=== PATIENT | male | born 1935 | race Caucasian/White ===

== ENCOUNTER 2020-03-18 10:45 | Observation (INO) | payer OTHER ==
[2020-03-18] VITALS (7 sets, daily range): BP systolic 130–150; BP diastolic 56–70
[~2020-03-18] VITALS: Ht 172.7 cm; Wt 83.0 kg
[~2020-03-18 10:45] MED LIST: ASPIR-LOW81 MG PO; CEFDINIR PO; DAILY VITAMIN1 EAC4 PO; FENOFIBRATE145 MG PO; FISH OIL 1,0001 EAC1 PO; GABAPENTIN300 MG PO; HYDRALAZINE HCL25 MG PO; LASIX40 MG PO; LEVOXYL50 MCG PO; MAGNESIUM OXID400 MG PO; NORVASC10 MG PO; PANTOPRAZOLE SO40 MG PO; PROTONIX IV40 MG PO; XARELTO15 MG PO
--- NOTE | 2020-03-18 11:15 | NUR ---
PT TO CT SCAN AT THIS TIME
[2020-03-18 11:19] LABS: BASOPHILS # (AUTO) 0.1 (0.0-0.1); BASOPHILS % 0.9 % (0.0-1.0); EOSINOPHILS # (AUTO) 0.2 (0.0-0.4); EOSINOPHILS % 2.5 % (0.0-6.0); HEMATOCRIT 43.2 % (38.2-49.6); HEMOGLOBIN 14.5 g/dL (14.0-18.0); LYMPHOCYTES # (AUTO) 1.7 (1.0-3.2); LYMPHOCYTES % 27.4 % (18.0-39.1); MEAN CORPUSCULAR HEMOGLOBIN 32.6 pg (28-32); MEAN CORPUSCULAR HGB CONC 33.6 g/dL (31-35); MEAN CORPUSCULAR VOLUME 97.1 fL (81-99); MONOCYTES # (AUTO) 0.6 (0.2-0.8); MONOCYTES % 9.5 % (4.4-11.3); NEUTROPHILS # (AUTO) 3.7 (2.1-6.9); NEUTROPHILS % 59.2 % (38.7-80.0); PLATELET COUNT 322 x10e3/uL (140-360); RED BLOOD COUNT 4.45 x10e6/uL (4.3-5.7); RED CELL DISTRIBUTION WIDTH 12.5 % (11.7-14.4)
--- NOTE | 2020-03-18 11:23 | NUR ---
NIHSS 1 DUE TO SENSORY DEFICIT, LKW 1900 03/18/[address] KOWALSKI
--- NOTE | 2020-03-18 11:32 | Emergency Department Note ---
History of Present Illnes History of Present Illness Chief Complaint: General Medicine Complaints History of Present Illness This is a 84 year old male arrived to the ED with complaints of a headache and bilateral upper and lower extremity numbness. Chief Complaint Comment PATIENT IN FROM HOME WITH COMPLAINTS OF A HEADACHE SINCE 0; ALSO WITH COMPLAINTS OF NUMBNESS TO HANDS AND FEET. PER SON, PATIENT WAS LAST SEEN NORMAL APPROX 7 PM 03/17/2020. PAIENT ALERT AND ORIENTED, RESP EVEN AND NONLABORED, APPEARS IN NO DISTRESS, UNABLE TO AMBULATE WITHOUT MAXIMUM ASSISTANCE, RATES PAIN 01/03 Historian: Patient, Family Member Arrival Mode: Car Onset (how long ago): day(s) Severity: moderate Onset quality: sudden Duration (how long): day(s) Timing of current episode: constant Progression: worsening Chronicity: new Past Medical/Family History Physician Review I have reviewed the patient's past medical and family history. Any updates have been documented here. Past Medical History Recent Fever: No Clinical Suspicion of Infectio: No New/Unexplained Change in Ment: No Past Medical History: Hypertension, Hypothyroidism, GERD, DVT/PE Other Medical History: Hypothyroidism DVT Other Surgery: IVC FILTER Social History Physically hurt or threatened: No Other Last Tetanus: OOD Any Pre-Existing Lines (PICC,: No Review of Systems Review of Systems Constitutional: Reports no symptoms EENTM: Reports no symptoms Cardiovascular: Reports no symptoms Respiratory: Reports no symptoms Gastrointestinal: Reports no symptoms Genitourinary: Reports no symptoms Musculoskeletal: Reports muscle stiffness Integumentary: Reports no symptoms Neurological: Reports as per HPI Psychological: Reports no symptoms Endocrine: Reports no symptoms Hematological/Lymphatic: Reports no symptoms Physical Exam Related Data Allergies: Coded Allergies: No Known Allergies (Unverified , 03/18/20) Triage Vital Signs Vital Signs Date Time Temp Pulse Resp B/P (MAP) Pulse Ox O2 Delivery O2 Flow Rate FiO2 03/18/20 10:52 97.7 75 20 155/80 99 Room Air Vital signs reviewed: Yes Physical Exam CONSTITUTIONAL Constitutional: Present well-developed, Present well-nourished HENT HENT: Present normocephalic, Present atraumatic, Present oropharynx clear/moist, Present nose normal HENT L/R: Present left ext ear normal, Present right ext ear normal EYES Eyes: Reports PERRL, Reports conjunctivae normal NECK Neck: Present ROM normal PULMONARY Pulmonary: Present effort normal, Present breath sounds normal CARDIOVASCULAR Cardiovascular: Present regular rhythm, Present heart sounds normal, Present capillary refill normal, Present normal rate GASTROINTESTINAL Abdominal: Present soft, Present nontender, Present bowel sounds normal GENITOURINARY Genitourinary: Present exam deferred SKIN Skin: Present warm, Present dry MUSCULOSKELETAL Musculoskeletal: Present ROM normal NEUROLOGICAL Neurological: Present alert, Present oriented x 3, Present sensory deficit, Present abnormal coordination, Present abnormal gait; Absent no gross motor or sensory deficits PSYCHOLOGICAL Psychological: Present mood/affect normal, Present judgement normal Results Laboratory Result Diagram: 03/18/20 1100 Laboratory Laboratory Tests Test 03/18/20 11:00 White Blood Count 6.32 x10e3/uL (4.8-10.8) Red Blood Count 4.45 x10e6/uL (4.3-5.7) Hemoglobin 14.5 g/dL (14.0-18.0) Hematocrit 43.2 % (38.2-49.6) Mean Corpuscular Volume 97.1 fL (81-99) Mean Corpuscular Hemoglobin 32.6 pg (28-32) Mean Corpuscular Hemoglobin Concent 33.6 g/dL (31-35) Red Cell Distribution Width 12.5 % (11.7-14.4) Platelet Count 322 x10e3/uL (140-360) Neutrophils (%) (Auto) 59.2 % (38.7-80.0) Lymphocytes (%) (Auto) 27.4 % (18.0-39.1) Monocytes (%) (Auto) 9.5 % (4.4-11.3) Eosinophils (%) (Auto) 2.5 % (0.0-6.0) Basophils (%) (Auto) 0.9 % (0.0-1.0) Neutrophils # (Auto) 3.7 (2.1-6.9) Lymphocytes # (Auto) 1.7 (1.0-3.2) Monocytes # (Auto) 0.6 (0.2-0.8) Eosinophils # (Auto) 0.2 (0.0-0.4) Basophils # (Auto) 0.1 (0.0-0.1) Absolute Immature Granulocyte (auto 0.03 x10e3/uL (0-0.1) Imaging Imaging results reviewed: Yes Impressions IMPRESSION: 1. No acute intracranial abnormalities. 2. Mild supratentorial chronic microvascular ischemic change. Mild generalized cerebral volume loss. Signed by: Dr. Preston Oconnor M.D. on 03/18/2020 11:50 AM Assessment & Plan Medical Decision Making COCO 84 F arrived to the ED with complaints of generalized weakness and inability ambulate for several days. Pt with marked ataxia- not a candidate for TPA given he is out of the window of onset of symptoms. Assessment & Plan Final Impression: (1) CVA (cerebral vascular accident) Depart Disposition: HOME, SELF-CARE Last Vital Signs Date Time Temp Pulse Resp B/P (MAP) Pulse Ox O2 Delivery O2 Flow Rate FiO2 03/18/20 11:15 97.8 86 18 124/88 99 Room Air Home Meds Reported Medications Multivitamin (DAILY VITAMIN FORMULA) 1 Each Tablet, 1 TAB PO DAILY 02/15/17 Magnesium Oxide (MAGNESIUM OXIDE) 400 Mg Tablet, 250 MG PO DAILY, TAB 02/15/17 Gabapentin (GABAPENTIN) 300 Mg Capsule, 300 MG PO BID, #60 CAP 02/15/17 Fenofibrate Nanocrystallized (FENOFIBRATE) 145 Mg Tablet, 134 MG PO DAILY 02/15/17 Furosemide (LASIX) 40 Mg Tablet, 40 MG PO DAILY, #30 TAB 05/06/14 Pantoprazole Sodium* (PROTONIX) 40 Mg Tablet.dr, 40 MG PO DAILY 05/06/14 Doole-3 Fatty Acids/Fish Oil (FISH OIL 1,000 MG SOFTGEL) 1 Each Capsule, 3000 MG PO DAILY 04/09/14 Aspirin (ASPIR-LOW) 81 Mg Tablet.dr, 81 MG PO DAILY 03/29/14 Hydralazine Hcl (HYDRALAZINE HCL) 25 Mg Tab, 25 MG PO BID 03/29/14 Levothyroxine Sodium (LEVOXYL) 50 Mcg Tablet, 50 MCG PO DAILY 03/29/14 MOY KOWALSKI DO Mar 18, 2020 11:31
[2020-03-18 11:38] LABS: ALBUMIN 4.3 g/dL (3.5-5.0); ALBUMIN/GLOBULIN RATIO 1.4 (0.8-2.0); ANION GAP 15.3 mmol/L (8-16); CALCIUM 9.2 mg/dL (8.4-10.2); CREATININE, SERUM 1.48 mg/dL (0.72-1.25); POTASSIUM 4.3 mmol/L (3.5-5.1)
[2020-03-18 11:44] LABS: CREATINE KINASE MB 2.7 ng/mL (0-5.0)
--- NOTE | 2020-03-18 11:53 | Diagnostic Imaging Report ---
CT BRAIN WO HISTORY: Numbness to hands, headache COMPARISON: Report from head CT dated 04/09/2014 Technique: Noncontrast axial scans were obtained from skull base to the vertex. Coronal and sagittal reconstructions obtained from the axial data. One or more of the following dose reduction techniques were used: Automated exposure control, adjustment of the mA and/or kV according to patient size, and/or utilization of iterative reconstruction technique. DISCUSSION: Scalp/Skull: Unremarkable. Brain sulci: Mildly prominent. Ventricles: Compensatory dilatation. Extra-axial spaces: No masses or fluid collections. Carotid siphon calcifications are present. Parenchyma: Mild bilateral deep white matter hypodensity is likely chronic microvascular ischemic change. Otherwise, no masses, hemorrhage, or large vascular territory acute infarct. Dural sinuses: No abnormal densities. Sellar/Suprasellar region: Intact. Skull base: Intact. Incidental findings: Mild scattered paranasal sinus mucosal thickening. IMPRESSION: 1. No acute intracranial abnormalities. 2. Mild supratentorial chronic microvascular ischemic change. Mild generalized cerebral volume loss. Signed by: Dr. Preston Oconnor M.D. on 03/18/2020 11:50 AM
[2020-03-18] MEDS ORDERED: SODIUM CHLORIDE 0.9% 50ML 0 ML ONE (12:07)
[2020-03-18] MEDS ORDERED: IOPAMIDOL 370 MG/ML 200 ML INFUS..BTL INJ ONE (12:07)
--- NOTE | 2020-03-18 12:19 | NUR ---
1st attempt to call report at this time
--- NOTE | 2020-03-18 12:24 | NUR ---
REPORT GIVEN TO TACO STOVALL, NOTIFIED THAT PT IS RECEIVING FLUIDS AT THIS TIME BEFORE GOING FOR A CTA OF THE BRAIN, MADE AWARE THAT RADIOLOGY NEEDS TO BE NOTIFIED WHEN PT IS READY FOR CTA,TACO STOVALL ACKNOWLEDGED
[2020-03-18] MEDS: SODIUM CHLORIDE 0.9% 1000ML 1,000 ML IV SCH ×2 (12:27→14:29)
--- NOTE | 2020-03-18 12:55 | NUR ---
PT ARRIVED FROM ER. PT IS AAOX4. EDUCATED PT ABOUT FALL PRECAUTIONS. PT VERBALIZED UNDERSTANDING. BED IS LOW AND LOCKED. SIDE RAILS X2. CALL LIGHT WITH IN EASY REACH. BED ALARM IS ON. ALL SAFETY MEASURES IN PLACE. PT DENIES NEEDS AT THIS TIME.
--- NOTE | 2020-03-18 13:00 | NUR ---
PT IS AAOX4. NO WEAKNESS, FACIAL DROOPING NOTED. CHECKED UPPER AND LOWER EXTREMITIES AND NORMAL STRENGTH NOTED.
--- NOTE | 2020-03-18 13:05 | NUR ---
PAGED RADIOLOGY NURSE REGARDING PENDING CTA BRAIN. INFORMED PT ARRIVAL TO THE UNIT.
--- NOTE | 2020-03-18 13:10 | NUR ---
NS RUNNING AT 100 ML/HR ON PT ARRIVAL FROM ER.
--- NOTE | 2020-03-18 13:45 | NUR ---
PT HOME MEDS RECONFIRMED WITH PT AND DAUGHTER TL OVER THE PHONE.
--- NOTE | 2020-03-18 14:00 | NUR ---
LOU GOTTI AND REPORTED PT ARRIVAL TO THE UNIT.
[2020-03-18] MEDS ORDERED: ACETAMINOPHEN 325 MG TAB PO PRN (14:30)
--- NOTE | 2020-03-18 14:30 | NUR ---
PAGED RADIOLOGY REGARDING CT.
--- NOTE | 2020-03-18 15:00 | NUR ---
PT OFF TO RADIOLOGY IN SAFE CONDITION.
--- NOTE | 2020-03-18 15:25 | NUR ---
SPOKE TO MRI NURSE REGARDING PT MRI ORDER.
--- NOTE | 2020-03-18 15:34 | NUR ---
PAGED DR. CHICAS REGARDING NEW CONSULT. WILL SEE PT TOMORROW PER THE
[2020-03-18] MEDS ORDERED: SODIUM CHLORIDE 0.9% 100 ML ONE (15:44)
--- NOTE | 2020-03-18 16:05 | NUR ---
PAGED RADIOLOGY. PT IS AT MRI PER THE RADIOLOGY.
[2020-03-18] MEDS ORDERED: GABAPENTIN 300 MG CAP PO SCH (17:00)
--- NOTE | 2020-03-18 17:14 | Diagnostic Imaging Report ---
History:Hand numbness Comparison studies:Same-day head CT. Technique: Axial images were obtained from the skull base to the vertex. Multiplanar and 3-D volume rendered images reformatted from the axial source data. Dose modulation, iterative reconstruction, and/or weight based adjustment of the mA/kV was utilized to reduce the radiation dose to as low as reasonably achievable. Intravenous contrast: 100 cc of Isovue-370. Findings: Anterior circulation: Internal carotid arteries: Patent bilaterally with mild calcified atherosclerosis in the bilateral cavernous and paraophthalmic segments without significant stenosis. Approximately 2 mm infundibular dilatation present at the left P-comm origin. Middle cerebral arteries: Patent, no proximal branch occlusion or stenosis. Anterior cerebral arteries: Patent, no proximal branch occlusion or stenosis. Posterior circulation: Vertebral arteries, patent, no abnormalities. The V4 segment of the left vertebral artery is hypoplastic and essentially terminates as PICA branch. Basilar artery: Patent, no abnormalities. Posterior cerebral arteries: Patent, no proximal branch occlusion or stenosis. Anatomical variants: Anterior communicating artery :Present Posterior communicating arteries: Not visualized. Vertebral arteries: Right is dominant. Nondominant left vertebral artery essentially terminates as a PICA branch. IMPRESSION: 1. No major intracranial arterial branch occlusion or stenosis. 2. Incidental 2 mm infundibular dilatation at the left P-comm origin. Signed by: Dr. Biju Guthrie M.D. on 03/18/2020 5:11 PM
--- NOTE | 2020-03-18 17:15 | NUR ---
PT BACK TO UNIT FROM RADIOLOGY. PT IS AAOX4. DENIES NEEDS AT THIS TIME.
[2020-03-18] MEDS: CEFTRIAXONE SOD 1 GM/NS 50 ML 50 ML IV SCH (17:30)
[2020-03-18] MEDS: HYDRALAZINE HCL 25 MG TAB PO SCH (17:34)
--- NOTE | 2020-03-18 17:48 | Diagnostic Imaging Report ---
History: Headache Comparison studies: Same-day head CT and intracranial CTA. Technique: Sagittal and axial T2, axial DWI, axial T2*GRE, axial T1 and axial coronal T2 FLAIR. Intravenous contrast: None Findings: Scalp: Incidental small lipoma in the right parietal scalp near the vertex. Bone marrow: Normal in signal intensity. Brain sulci: Mildly prominent. Ventricles: Mild compensatory dilatation. No hydrocephalus. Extra axial spaces: No mass, no fluid collection. Parenchyma: No mass, hemorrhage or acute ischemia. A few scattered and mildly confluent T2 FLAIR hyperintense foci in the supratentorial white matter are nonspecific but are most compatible with chronic microvascular ischemic changes. There is an incidental prominent arachnoid granulation in the right occipital calvarium with associated focal herniation of the underlying right posteromedial cerebellum with chronic encephalomalacia. Suprasellar region: No abnormalities. Craniocervical junction: Patent foramen magnum. No Chiari malformation. Vessels: Normal flow-voids in the arteries and sinuses. Incidental findings: Bilateral intraocular lens replacements. Mild nonspecific reactive T2 hyperintense inflammatory changes in the bilateral anterior ethmoids as well as mild mucosal thickening with small retention cysts in the bilateral maxillary sinuses. IMPRESSION: No acute intracranial abnormalities. No changes from the same day head CT. Chronic findings: 1. Mild generalized parenchymal volume loss. 2. Mild to moderate supratentorial microvascular ischemic changes. 3. Incidental prominent right occipital calvarial arachnoid granulation as described with underlying small chronic right cerebellar insult. Signed by: Dr. Biju Guthrie M.D. on 03/18/2020 5:45 PM
--- NOTE | 2020-03-18 18:26 | Diagnostic Imaging Report ---
History: Hand numbness, headache Comparison studies: None Technique: Sagittal T1, T2 and IR, axial T2 and axial gradient echo Intravenous contrast: None Findings: Alignment: Mild reversal the usual cervical lordotic curvature with retrolisthesis of C4 on C5 by approximately 4 mm, retrolisthesis of C5 on C6 by approximately 3 mm), severe degenerative canal stenosis due to disc ossify) retrolisthesis retrolisthesis of C6 on C7 by approximately 2 mm. Cervicomedullary junction: No abnormalities. Patent foramen magnum. Soft tissues: Small prevertebral effusion from C3 to C6. Spinal cord: Focal cord signal abnormality with myelomalacia at C4-C5 as well as possible cord signal changes at C5-C6 due to severe degenerative canal stenosis described below. Vertebrae: No acute compression fracture, infection or neoplasm. Chronic T3 superior endplate depression deformity with mild height loss. Edema within the C5-C6 and C6-C7 vertebral bodies and in the superior C7 endplate is without associated increased T2 signal within the disc to suggest discitis osteomyelitis and is most likely degenerative in etiology. Degenerative changes: C2-C3: Mildly degenerated disc. Mild left and severe right foraminal stenosis due to uncovertebral and facet arthrosis. The right facets are fused. C3-C4: Mildly degenerated disc. Symmetric disc bulge and thickened ligamentum flavum contribute to mild canal stenosis. Severe bilateral foraminal stenosis due to uncovertebral arthrosis and severe right and mild left foraminal stenosis. C4-C5: Moderately degenerated disc with moderate degenerative endplate edema. Retrolisthesis of C4 on C5 with associated disc osteophyte complex and thickened ligamentum flavum contribute to severe canal stenosis. Severe bilateral foraminal stenosis due to uncovertebral and facet arthrosis. C5-C6: Moderately degenerated disc with moderate degenerative endplate edema. Retrolisthesis of C5 on C6 with associated disc osteophyte complex and small central disc extrusion and thickened ligamentum flavum contribute to severe canal stenosis. Severe bilateral foraminal stenosis due to uncovertebral and facet arthrosis. C6-C7: Moderately degenerated disc with degenerative endplate edema. Disc osteophyte complex and thickened ligamentum flavum contribute to severe canal stenosis. Severe bilateral right foraminal stenosis due to uncovertebral and facet arthrosis. C7-T1: Mildly degenerated disc. Bilateral facet arthrosis. Patent canal and foramina. IMPRESSION: 1. 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 Associated cord signal changes with myelomalacia at C4-C5 as well as questionable cord signal changes at C5-C6 which could be correlated for acute on chronic myelopathy symptoms. 2. Small prevertebral effusion may be reactive related to degenerative changes or possibly related to recent trauma in the appropriate clinical setting. 3. Severe foraminal stenosis on the right at C2-C3 and bilaterally from C3 to C7. 4. Moderately degenerated discs with reactive endplate edema from C4 to C7. 5. Multilevel facet arthrosis. Findings discussed with Dr. Munoz at 6:25 pm 03/18/2020 Recommend spinal surgical consultation. Signed by: Dr. Biju Guthrie M.D. on 03/18/2020 6:29 PM
--- NOTE | 2020-03-18 18:54 | NUR ---
BEDSIDE SHIFT REPORT GIVEN TO THE [employer] RN. PT DENIED FURTHER NEEDS. PT DAUGHTER AT BEDSIDE WITH PERMISSION FROM [employer].
--- NOTE | 2020-03-18 20:08 | NUR ---
pt resting in bed comfortably daughter at bedside no signs of distress no complaints at this time
[2020-03-18] MEDS: BACLOFEN 10 MG TAB PO SCH (20:10)
[2020-03-18] MEDS: ACETAMIN/BUTALBITAL/CAFFEINE TAB PO PRN (22:44)
--- NOTE | 2020-03-19 00:21 | Consultation ---
DATE OF CONSULTATION: Neurology Consultation HISTORY OF PRESENT ILLNESS: I am seeing the patient for possible stroke versus TIA. The patient reports that this morning, he woke up with pain in the right side of his neck, posterior region, that he does not this is pretty bad pain compared to his normal pain. He describes it is not a stabbing pain, more of a deep ache positioning pain. It did not radiate to his head, which is pretty much stated in his neck and the base of the skull. No visual changes or speech dysfunction were noted. There is some report of right-sided weakness as per the family, but he himself denies it at this time. He states that his usual state of health is pretty good. He does take hypertensive medications and he is at home on aspirin and takes Tylenol for headaches when he gets them and he has thyroid disease. Denies alcohol or drugs. Symptoms have largely resolved. He still has mild pain. He has severe pain in the neck. Otherwise, he seems to be largely doing better. The weakness in his right arm is largely resolved. He denies any sensory disturbance, although there are some reports in the record regarding that. PHYSICAL EXAMINATION: VITAL SIGNS: Include temperature 97.7, respiratory rate of 20, pulse of 75 and regular, blood pressure 155/80. HEENT: His extraocular muscles are intact. Face is symmetric. Pupils are clear. He has diminished hearing and uses hearing aids, but there is no nuchal rigidity. I did not exert a lot of force on his neck because looking at the MRI before it is read that seems to be some high degree of stenosis in the C-spine. CARDIOVASCULAR: Regular rate and rhythm. PULMONARY: Clear to auscultation. ABDOMEN: Soft and nontender. LUNGS: There is no rhonchi in his breathing. No wheezing. He is breathing comfortably on room air. NEUROLOGIC: His strength in his overlock collar setter bilaterally is 5/5. Strength in his biceps laterally is 5/5. Reflexes are 1/4 in the uppers and 1-/4 in the bilateral lower extremities. Strength in the upper extremities and lower extremities seem to be 5/5. When he ambulates, his gait is a little bit either antalgic or wide-based. He does need some support to walk straight; however, he just gotten off MRI bed, so maybe some disuse or some imbalance due to that. ASSESSMENT AND PLAN: I am seeing Mr. Hesnon for possible transient ischemic attack. Initial CT scan is negative. I reviewed them while this was being performed and it appears to be within normal limits. A C-spine MRI, however, is quite abnormal, although it does not appear to be an acute abnormality. He is already on aspirin and statins. I am going to send lipid panel and CTA will be helpful if he does have any creatinine issue to make sure there is no dissection. Finally, I am going to adjust aspirin from 81 to 325. Given his creatinine function is borderline, I am going to avoid to see if hydration improves before we do a CT angiogram. An MRA will be ordered, however, of the head and the neck to evaluate for vascular dysfunction or even dissection of the posterior vertebral arteries. At this time, his exam is nonfocal, so I do not feel, he is not a tPA candidate here, and there is no need for anticoagulation. MD TEODORO RIOS/STACY /[id number]
[2020-03-19] MEDS: ACETAMIN/BUTALBITAL/CAFFEINE TAB PO PRN (02:45)
[2020-03-19 04:17] VITALS: BP 134/90
--- NOTE | 2020-03-19 04:19 | NUR ---
pt resting in bed comfortably family at bedside no signs of distress no complaints at this time
[2020-03-19 05:16] LABS: BASOPHILS % 0.6 % (0.0-1.0); EOSINOPHILS # (AUTO) 0.2 (0.0-0.4); EOSINOPHILS % 3.9 % (0.0-6.0); HEMATOCRIT 40.2 % (38.2-49.6); HEMOGLOBIN 13.3 g/dL (14.0-18.0); LYMPHOCYTES # (AUTO) 1.7 (1.0-3.2); LYMPHOCYTES % 33.5 % (18.0-39.1); MEAN CORPUSCULAR HEMOGLOBIN 32.4 pg (28-32); MEAN CORPUSCULAR HGB CONC 33.1 g/dL (31-35); MEAN CORPUSCULAR VOLUME 97.8 fL (81-99); MONOCYTES # (AUTO) 0.5 (0.2-0.8); NEUTROPHILS # (AUTO) 2.6 (2.1-6.9); NEUTROPHILS % 51.6 % (38.7-80.0); PLATELET COUNT 276 x10e3/uL (140-360); RED BLOOD COUNT 4.11 x10e6/uL (4.3-5.7); RED CELL DISTRIBUTION WIDTH 12.5 % (11.7-14.4)
[2020-03-19 05:36] LABS: ALBUMIN 3.7 g/dL (3.5-5.0); ALBUMIN/GLOBULIN RATIO 1.5 (0.8-2.0); ANION GAP 12.6 mmol/L (8-16); CALCIUM 8.1 mg/dL (8.4-10.2); CREATININE, SERUM 1.22 mg/dL (0.72-1.25); POTASSIUM 3.6 mmol/L (3.5-5.1)
[2020-03-19 05:53] LABS: CHOL/HDL RATIO 2.7 (3.9-4.7)
[2020-03-19] MEDS ORDERED: LEVOTHYROXINE SODIUM 50 MCG TAB PO SCH (06:00)
--- NOTE | 2020-03-19 07:00 | NUR ---
RECEIVED BEDSIDE REPORT FROM OFF GOING NIGHT NURSE. PATIENT ASLEEP WITH DAUGHTER AT BED SIDE. RESPIRATION EVEN AND NONLABORED. IV FLUIDS INFUSING, SITE ASYMPTOMATIC AND PATENT, TRANSPARENT DRESSING C/D/I. BED IN LOWEST POSITION AND LOCKED, SIDE RAILS X 2, NONSKID SOCKS APPLIED.
[2020-03-19 08:00] VITALS: BP 152/69
--- NOTE | 2020-03-19 08:23 | NUR ---
MAY REMOVE TELEMETRY FOR MRI.
--- NOTE | 2020-03-19 08:47 | NUR ---
PATIENT OFF THE UNIT @ 0833. WENT TO MRI. PATIENT LEFT THE UNIT IN STABLE CONDITION, NO S/S OF DISTRESS NOTED.
[2020-03-19] MEDS ORDERED: MULTIVITAMIN PO SCH (09:00)
[2020-03-19] MEDS ORDERED: MAGNESIUM OXIDE 400 MG TAB PO SCH (09:00)
[2020-03-19] MEDS ORDERED: FENOFIBRATE 145 MG TAB PO SCH (09:00)
[2020-03-19] MEDS ORDERED: PANTOPRAZOLE SOD 40 MG TABEC PO SCH (09:00)
[2020-03-19] MEDS ORDERED: FATTY ACIDS PO SCH (09:00)
[2020-03-19] MEDS ORDERED: [UNRECOGNIZED DRUG - OTHER] PO SCH (09:00)
[2020-03-19] MEDS ORDERED: ASPIRIN 81 MG CHEW TAB PO SCH ×2 (09:00)
[2020-03-19] MEDS ORDERED: FISH OIL PO SCH (09:00)
[2020-03-19] MEDS ORDERED: OMEGA PO SCH (09:00)
[2020-03-19] MEDS ORDERED: ASPIRIN 325 MG TAB PO SCH (09:00)
[2020-03-19] MEDS ORDERED: OMEGA 3 POLYUNSAT FATTY ACIDS 1000 MG SOFTGEL PO SCH (09:00)
[2020-03-19] MEDS ORDERED: MULTIVITAMINS/MINERALS TAB PO SCH (09:00)
[2020-03-19 09:25] VITALS: BP 152/69
[2020-03-19] MEDS: SENNOSIDES 8.6 MG TAB PO SCH ×2 (09:30→17:00)
[2020-03-19] MEDS: HYDRALAZINE HCL 25 MG TAB PO SCH ×2 (10:03→17:00)
[2020-03-19] MEDS: BACLOFEN 10 MG TAB PO SCH ×2 (10:04→15:05)
[2020-03-19] MEDS: GABAPENTIN 300 MG CAP PO SCH ×2 (10:06→15:05)
--- NOTE | 2020-03-19 10:11 | Diagnostic Imaging Report ---
Neck and intracranial MRAs without IV contrast History: Dissection Comparison studies: Intracranial MRA and brain MRI of 03/18/2020 Technique: Neck MRA: Axial 2-D [id number] with 3-D MIP reformats. Intracranial MRA: Axial 3-D [id number] with coronal, sagittal and 3-D MIP reformats. Intravenous contrast: None Findings: Neck MRA: If present, stenosis is calculated utilizing the NASCET method which calculates the degree of stenosis with reference to the normal lumen of the carotid artery distal to the stenosis. Carotid arteries: Evaluation of the carotid artery origins is limited by artifact otherwise patent, no flow limiting stenosis. Carotid bulbs: Patent, no (0%) stenosis by NASCET criteria. Internal carotid arteries: Patent, no flow limiting stenosis. Vertebral arteries: Evaluation of the origins are limited by motion/pulsation artifacts. Both vertebral arteries are otherwise patent. Mild luminal regularity in the right vertebral artery without hemodynamically significant stenosis may be due to atherosclerosis or possibly related to hypertrophic uncovertebral and facet degenerative arthrosis in the cervical spine as seen on the prior cervical spine MRI. Right vertebral artery is dominant. Intracranial MRA: Anterior circulation: Internal carotid arteries: Patent with mild atherosclerosis in the carotid siphons without significant stenosis. Incidental 2 mm infundibular dilatation at the left P-comm origin. Middle cerebral arteries: Patent, no proximal branch occlusion or stenosis. Anterior cerebral arteries: Patent, no proximal branch occlusion or stenosis. Posterior circulation: Vertebral arteries: Patent, no abnormalities. The C4 segment of the left vertebral artery is hypoplastic and essentially terminates as a PICA branch. Basilar artery: Patent, no abnormalities. Posterior cerebral arteries: Patent, no proximal branch occlusion or stenosis. Anatomical variants: Acom: Visualized. Pcoms: Visualized bilaterally. Vertebral arteries: Right is dominant. Nondominant left vertebral artery with hypoplastic intradural V4 segment which terminates as a PICA branch. IMPRESSION: Neck MRA: 1. Evaluation of the common carotid artery and vertebral artery origins are limited due to artifacts. 2. Bilateral carotid and vertebral arteries beyond their origins are otherwise patent without flow-limiting stenosis. Intracranial MRA: 1. No major arterial branch occlusion or stenosis. 2. Incidental 2 mm infundibular dilatation the left P-comm origin. 3. No changes from the intracranial CTA of 03/18/2020. Signed by: Dr. Biju Guthrie M.D. on 03/19/2020 10:08 AM
[2020-03-19] MEDS ORDERED: PREDNISONE 20 MG TAB PO ONE (10:15)
--- NOTE | 2020-03-19 10:20 | NUR ---
PATIENT ARRIVED TO THE UNIT @1020. PATIENT IN STABLE CONDITION,NO S/S OF DISTRESS NOTED.
[2020-03-19 11:27] VITALS: BP 138/68
--- NOTE | 2020-03-19 11:59 | NUR ---
Discontinuing PT services since patient is Mod I in functional mobility.Thank you Addendum: 03/19/20 at 1159 by Juan ly PT Amended: Links added.
--- NOTE | 2020-03-19 13:03 | History and Physical ---
PRIMARY CARE PHYSICIAN: Dr. Nasim Garcia [employer] SUPERVISOR: Dr. Celia Alvarenga CHIEF COMPLAINT: Neck pain. HISTORY OF PRESENT ILLNESS: The patient is 84 years male, came in complaining of some weakness, bilateral upper extremity associated with numbness and tingling sensation. The patient had a CTA of the brain unremarkable, no acute finding. CT of the brain also negative. The patient had MRI of the neck and MRI of the brain that was done. Findings consistent with severe degenerative disk disease of the C-spine. For more specific, please review the imaging test. The patient is otherwise stable at this time. He had no chest pain or shortness of breath. No focal deficit. PAST MEDICAL HISTORY: Includin. Hypertension. 2. Hypothyroidism. 3. Reflux. 4. History of deep vein thrombosis. 5. Pulmonary embolism. 6. Anticoagulant therapy. 7. Has IVC filter placement. 8. Osteoarthritis. SOCIAL HISTORY: The patient does not smoke or use alcohol. No regular drug. ALLERGIES: NO KNOWN ALLERGIES. HOME MEDICATIONS: List is reviewed. 1. He is on aspirin. 2. Fenofibrate. 3. Furosemide. 4. Gabapentin. 5. Hydralazine. 6. Levothyroxine. 7. Magnesium oxide. 8. Multivitamin. 9. [place]-3 fatty acids. 10. . PHYSICAL EXAMINATION: VITAL SIGNS: Temperature is 98, blood pressure 134/90, pulse rate is 75 respirations 18. GENERAL: The patient is not in acute distress. He is awake. HEENT: Normocephalic and atraumatic. Anicteric. NECK: Supple grossly. PULMONARY: Diminished breath sounds. CARDIOVASCULAR: Regular rate and rhythm. ABDOMEN: Soft and unremarkable. EXTREMITIES: No gross cyanosis or edema. NEUROLOGIC: Radiating pain both upper and lower extremity with some numbness and tingling sensation. IMAGING TESTS: Head CTA, otherwise unremarkable. Cervical spine MRI showed that the patient has severe degenerative canal stenosis from C4-C7. There is disk osteophyte complexes and retrolisthesis. 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 There is moderately degenerated disks with reactive endplate edema from C4-C7. Multilevel facet arthrosis. MRI of the brain otherwise unremarkable. No acute finding. IMPRESSION: Degenerative disk disease with C-spinal radiating pain to the both upper extremity with severe foraminal stenosis of C2-C3 and bilaterally from C3-C7. Moderately degenerated disks with reactive endplate edema from C4-C7. No history of trauma. There is severe degenerative canal stenosis from C4-C7 due to disk osteophyte complexes and retrolisthesis. This is describing the patient's premises of worsening symptom of the C-spine problem. PLAN: I discussed with patient and daughter in the room. They do not want neurosurgical consultation at this time. They want to try some medication and physical therapy first. If any surgical consultation, they will get Dr. Garcia to refer as an outpatient. We will start the patient on gabapentin, some steroids and pain medication. We will follow up on the patient. If you do better, he either go home today or tomorrow. MD KENNETH Swift/STACY /[id number]
--- NOTE | 2020-03-19 14:02 | NUR ---
THE PATIENT PULLED OUT HIS IV ACCESS AND REMOVED HIS TELEMETRY AND REFUSED TO HAVE ANOTHER IV PACED AND TO HAV THE TELEMETRY APPLIED.
[2020-03-19] MEDS: HYDROCODONE/APAP 5MG-325MG TAB PO PRN ×2 (14:29→18:29)
[2020-03-19 15:30] VITALS: BP 141/59
[2020-03-19] MEDS: CEFTRIAXONE SOD 1 GM/NS 50 ML 50 ML IV SCH (16:30)
--- NOTE | 2020-03-19 17:11 | NUR ---
patient awake and enjoying dinner vs 97.5 152 /69 99 awake rrr cta abd soft oriented x 2 calm speech clear no focal neurological deficits no numbness no weakness, pronator drift (left) resolved no ataxia stregnth 5/5 in bue 4/5 ble a/p high grade c spine stenosis anterior vertebral body edema with structural changes - posisbly post traumatic vs infalmatory foraminal stenosis no evidence of acute neurological injury I showed the patietns daughter his MRI and epxlained the need for evaluation for surgery, given the severity of stnosis an drisk of spinal cord damage with relatively minor injury. she expressed understanding and prefers no acute surgical intervention but wanted to follow up as outpt I explained she could follow w/ Dr. Paul, my partner,but would also require neurosugcal or orthopaedic eval for C spine stensis and anterior disk abnormality. clinically he is stable and well, and wishes to go home. no acute reason to maintain him here. however he lives alone and is a fall risk, i aexplained even a minor jostle could be dangerous to his functional status including leading to paralysis diamante epressed understanding
[2020-03-20] MEDS ORDERED: PREDNISONE 20 MG TAB PO SCH (09:00)
[2020-03-20] MEDS ORDERED: FUROSEMIDE 40 MG TAB PO SCH (09:00)
--- OUTSIDE RECORDS SUMMARY | 2020-03-23 15:15 | XMS REPORT | Continuity of Care Document ---
Author Author [facility] t Organization [facility] Address [address] [place] [address] Phone Unavailable Care Team Providers Care Digital Librarian Name Role Phone MD ADRYAN KERR PCP NEY GOTTI Attphychase Unavailable NEY GOTTI Admphychase Unavailable Payers Payer Name Policy Type Policy Number Effective Date Expiration Date Chase Porter [id number] 2019 00:00:00 [facility] Problems Condition Name Condition Details Condition Category Status Onset Date Resolution Date Last Treatment Date Treating Clinician Comments Source Deep vein thrombosis Problem Active 2014-05-21 00:00:00 [facility] Hypokalemia Problem Active 2014-05-21 00:00:00 [facility] 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 Social History Social Habit Start Date Stop Date Quantity Comments Source Sex Assigned At 1935 00:00:00 1935 00:00:00 Male [facility] Medications Ordered Medication Name Filled Medication Name Start Date Stop Da te Current Medication? Ordering Clinician Indication Dosage Frequency Signature (SIG) Comments Components Source Aspirin (Aspir-Low) 81 Mg TABLET. Aspirin (Aspir-Low) 81 Mg TABLET. Yes 81 Daily [facility] Fenofibrate Nanocrystallized (Fenofibrate) 145 Mg TABL ET Fenofibrate Nanocrystallized (Fenofibrate) 145 Mg TABLET Yes 134 Daily [facility] Furosemide (Lasix) 40 Mg TABLET Furosemide (Lasix) 40 Mg TABLET Yes 40 Daily [facility] Gabapentin Gabapentin Yes 300 Twice A Day [facility] Hydralazine Hcl Hydralazine Hcl Yes 25 Twice A Day [facility] Levothyroxine Sodium (Levoxyl) 50 Mcg TABLET Levothyro xine Sodium (Levoxyl) 50 Mcg TABLET Yes 50 Daily [facility] Magnesium Oxide Magnesium Oxide Yes 250 Daily [facility] Multivitamin (Daily Vitamin Formula) 1 Each TABLET Mul tivitamin (Daily Vitamin Formula) 1 Each TABLET Yes 1 Daily [facility] [place]-3 Fatty Acids/Fish Oil (Fish Oil 1,000 Mg Softge l) 1 Each CAPSULE [place]-3 Fatty Acids/Fish Oil (Fish Oil 1,000 Mg Softgel) 1 Each CAPSULE Yes 3000 Daily [facility] Pantoprazole Sodium (Protonix) 40 Mg TABLET. Pantopr azole Sodium (Protonix) 40 Mg TABLET. Yes 40 Daily [facility] Amlodipine Besylate (Norvasc) 10 Mg TAB Amlodipine Besylate (Norvasc) 10 Mg TAB 2017-02-15 00:00:00 No 10 Twice A Day [facility] Cefdinir Cefdinir 2017-02-15 00:00:00 No 300 Every 1 2 Hours [facility] Rivaroxaban (Xarelto) 15 Mg TABLET Rivaroxaban (Xarelto) 15 Mg T ABLET 2017-02-15 00:00:00 No Twice A Day [facility] Pantoprazole Sodium (Protonix Iv) 40 Mg VIAL Pantopraz ole Sodium (Protonix Iv) 40 Mg VIAL 2014-05-06 00:00:00 No 40 Q24h [facility] Vital Signs Vital Name Observation Time Observation Value Comments Source Body Temperature 2020-03-19 15:30:00 97.3 [degF] [facility] BMI (Body Mass Index) 2020-03-18 13:15:00 27.8 kg/m2 [facility] Weight 2020-03-18 10:52:00 183 [lb_av] [facility] Procedures Procedure Date / Time Performed Performing Clinician Manda zuniga Magnetic resonance angiography of head without contrast 00:00:00 [facility] Magnetic resonance angiography of neck without contrast 00:00:00 [facility] Computed tomography of brain without radiopaque contrast 2020-02 00:00:00 [facility] Magnetic resonance imaging of brain without contrast 2020-03-18 00:00:00 [facility] Magnetic resonance imaging of cervical spine without c ontrast 2020-03-18 00:00:00 [facility] Computed tomography angiography of brain 2020-03-18 00:00:00 [facility] Plan of Care Planned Activity Planned Date Details Comments Source Instructions Infection Control [facility] Encounters Start Date/Time End Date/Time Encounter Type Admission Type [facility] Care Department Encounter ID Source 2020-03-18 11:53:00 2020-03-19 19:00:00 Discharged Inpatient (obs) 1 NEY GOTTI [facility] [id number] [facility] Results Test Description Test Time Test Comments Results Result Comments Source MRA NECK WO 2020-03-19 09:52:00 [facility] [address] [address] Patient Name: VALENTINO PEDROZA MR #: [id number] : 1935 Age/Sex: 84/M Req #: [id number] Adm Physician: NEY GOTTI MD Ordered by: SINCERE CHICAS MD Report #: [id number] Location: MED/SURG2 Room/Bed: [facility] Procedure: [id number] MRI/MRA NECK WO Exam Date: Exam Time: REPORT STATUS: Signed Neck and intracranial MRAs without IV contrast History: Dissection Comparison studies: Intracranial MRA and brain MRI of 03/18/2020 Technique: Neck MRA: Axial 2-D [id number] with 3-D MIP reformats. Intracranial MRA: Axial 3-D [id number]-qt-[id number] with coronal, sagittal and 3-D MIP reformats. Intravenous contrast: None Findings: Neck MRA: If present, stenosis is calculated utilizing the NASCET method which calculates the degree of stenosis with reference to the normal lumen of the carotid artery distal to the stenosis. Carotid arteries: Evaluation of the carotid artery origins is limited by artifact otherwise patent, no flow limiting stenosis. Carotid bulbs: Patent, no (0%) stenosis by NASCET criteria. Internal carotid arteries: Patent, no flow limiting stenosis. Vertebral arteries: Evaluation of the origins are limited by motion/pulsation artifacts. Both vertebral arteries are otherwise patent. Mild luminal regularity in the right vertebral artery without hemodynamically significant stenosis may be due to atherosclerosis or possibly related to hypertrophic uncovertebral and facet degenerative arthrosis in the cervical spine as seen on the prior cervical spine MRI. Right vertebral artery is dominant. Intrac ranial MRA: Anterior circulation: Internal carotid arteries: Patent with mild atherosclerosis in the carotid siphons without significant stenosis. Incidental 2 mm infundibular dilatation at the left P-comm origin. Middle cerebral arteries: Patent, no proximal branch occlusion or stenosis. Anterior cerebral arteries: Patent, no proximal branch occlusion or stenosis. Posterior circulation: Vertebral arteries: Patent, no abnormalities. The C4 segment of the left vertebral artery is hypoplastic and essentially terminates as a PICA branch. Basilar artery: Patent, no abnormalities. Posterior cerebral arteries: Patent, no proximal branch occlusion or stenosis. Anatomical variants: Acom: Visualized. Pcoms: Visualized bilaterally. Vertebral arteries: Right is dominant. Nondominant left vertebral artery with hypoplastic intradural V4 segment which terminates as a PICA branch. IMPRESSION: Neck MRA: 1. Evaluation of the common car otid artery and vertebral artery origins are limited due to artifacts. 2. Bilateral carotid and vertebral arteries beyond their origins are otherwise patent without flow-limiting stenosis. Intracranial MRA: 1. No major arterial branch occlusion or stenosis. 2. Incidental 2 mm infundibular dilatation the left P-comm origin. 3. No changes from the intracranial CTA of 03/18/2020. Signed by: Dr. Manisha Guthrie M.D. on 03/19/2020 10:08 AM Dictated By: MANISHA GUTHRIE MD 1008 Transcribed By: ANGY on 03/19/20 1008 COPY TO: SINCERE CHICAS MD Blood leukocytes automated count (number/volume) 2020-03-19 04:47:00 Test Item White Blood Count (test code = 6690-2) 5.08 4.8-10.8 [facility] count (number/volume)2020-03-19 04:47:00* Test Item Value Reference Range Interpretation Comments Red Blood Count (test code = 789-8) 4.11 4.3-5.7 [facility] hemoglobin measurement (moles/volume)2020-03-19 04:47:00* Test Item Value Reference Range Interpretation Comments Hemoglobin (test code = 98174-3) 13.3 14.0-18.0 [facility] HospitalAutomated blood hematocrit (volume fraction)2020-03-19 04:47:00* Test Item Value Reference Range Interpretation Comments Hematocrit (test code = 4544-3) 40.2 38.2-49.6 [facility] HospitalAutomated erythrocyte mean corpuscular [id number] 04:47:00* Test Item Value Reference Range Interpretation Comments Mean Corpuscular Volume (test code = 787-2) 97.8 81-99 [facility] HospitalAutomated erythrocyte mean corpuscular hemoglobin (mass per erythrocyte)2020-03-19 04:47:00* Test Item Value Reference Range Interpretation Comments Mean Corpuscular Hemoglobin (test code = 785-6) 32.4 28-32 [facility] HospitalAutom[facility] erythrocyte mean corpuscular hemoglobin concentration measurement (mass/volume)2020-03-19 04:47:00* Test Item Value Reference Range Interpretation Comments Mean Corpuscular Hemoglobin Concent (test code = 786-4) 33.1 31-35 [facility] HospitalRDW [id number] 04:47:00* Test Item Value Reference Range Interpretation Comments Red Cell Distribution Width (test code = 16709-5) 12.5 11.7 -14.4 [facility] HospitalAutomated blood platelet count (count/volume)2020-03-19 04:47:00* Test Item Value Reference Range Interpretation Comments Platelet Count (test code = 777-3) 276 140-360 [facility] HospitalAutom[facility] blood segmented neutrophil count as percentage of total [id number] 04:47:00* Test Item Value Reference Range Interpretation Comments Neutrophils (%) (Auto) (test code = 49555-8) 51.6 38.7-80.0 [facility] HospitalAutomat blood lymphocyte count as percentage ot total [id number] 04:47:00* Test Item Value Reference Range Interpretation Comments Lymphocytes (%) (Auto) (test code = 736-9) 33.5 18.0-39.1 [facility] HospitalAutomated blood monocyte count as percentage of total [id number] 04:47:00* Test Item Value Reference Range Interpretation Comments Monocytes (%) (Auto) (test code = 5905-5) 10.0 4.4-11.3 [facility] HospitalAutomated blood eosinophil count as percentage of total vlhperkbxc8923-52-43 04:47:00* Test Item Value Reference Range Interpretation Comments Eosinophils (%) (Auto) (test code = 713-8) 3.9 0.0-6.0 [facility] HospitalAutomated blood basophil count as percentage of total slftcaqrsf9502-21-05 04:47:00* Test Item Value Reference Range Interpretation Comments Basophils (%) (Auto) (test code = 706-2) 0.6 0.0-1.0 [facility] HospitalFluoroscopic procedure less than one hour [id number] 04:47:00* Test Item Value Reference Range Interpretation Comments IM GRANULOCYTES % (test code = IM GRANULOCYTES %) 0.4 0.0- 1.0 [facility] HospitalAutom[facility] blood neutrophil count 2020-03-19 04:47:00* Test Item Value Reference Range Interpretation Comments Neutrophils # (Auto) (test code = 751-8) 2.6 2.1-6.9 [facility]Blood lymphocytes count (number/volume) 2020-03-19 04:47:00* Test Item Value Reference Range Interpretation Comments Lymphocytes # (Auto) (test code = 22317-0) 1.7 1.0-3.2 [facility] HospitalBlood monocytes automated count (number/volume)2020-03-19 04:47:00* Test Item Value Reference Range Interpretation Comments Monocytes # (Auto) (test code = 742-7) 0.5 0.2-0.8 [facility] HospitalAutomated blood eosinophil count 2020-03-19 04:47:00* Test Item Value Reference Range Interpretation Comments Eosinophils # (Auto) (test code = 711-2) 0.2 0.0-0.4 [facility] HospitalAutomated blood basophil count (count/volume)2020-03-19 04:47:00* Test Item Value Reference Range Interpretation Comments Basophils # (Auto) (test code = 704-7) 0.0 0.0-0.1 [facility] HospitalFluoroscopic procedure less than one hour [id number] 04:47:00* Test Item Value Reference Range Interpretation Comments Absolute Immature Granulocyte (auto (emily t code = Absolute Immature Granulocyte (auto) 0.02 0-0.1 [facility] HospitalErythrocyte sedimentation rate by Westergren [id number] 04:47:00* Test Item Value Reference Range Interpretation Comments Erythrocyte Sedimentation Rate (test code = 4537-7) 5 0- 13 [facility] sodium measurement (moles/volume)2020-03-19 04:47:00* Test Item Value Reference Range Interpretation Comments Sodium Level (test code = 2951-2) 141 136-145 [facility] potassium measurement (moles/volume)2020-03-19 04:47:00* Test Item Value Reference Range Interpretation Comments Potassium Level (test code = 2823-3) 3.6 3.5-5.1 [facility] chloride measurement (moles/volume)2020-03-19 04:47:00* Test Item Value Reference Range Interpretation Comments Chloride Level (test code = 2075-0) 106 98-107 [facility] plasma carbon dioxide, total measurement (moles/volume)2020-03-19 04:47:00* Test Item Value Reference Range Interpretation Comments Carbon Dioxide Level (test code = 2028-9) 26 22-29 [facility] plasma anion [id number] 04:47:00* Test Item Value Reference Range Interpretation Comments Anion Gap (test code = 43354-6) 12.6 8-16 [facility] urea nitrogen measurement (mass/volume)2020-03-19 04:47:00* Test Item Value Reference Range Interpretation Comments Blood Urea Nitrogen (test code = 3094-0) 14 7-26 [facility] creatinine measurement (mass/volume)2020-03-19 04:47:00* Test Item Value Reference Range Interpretation Comments Creatinine (test code = 2160-0) 1.22 0.72-1.25 [facility] urea nitrogen/creatinine mass qzbie0885-22-84 04:47:00* Test Item Value Reference Range Interpretation Comments BUN/Creatinine Ratio (test code = 3097-3) 11 6-25 [facility] HospitalEstimated glomerular filtration rate (GFR) sdhaxbxywwmwo4638-37-99 04:47:00* Test Item Value Reference Range Interpretation Comments Estimat Glomerular Filtration Rate (test code = 568879632) 57 >60 Ranges were taken from the National Kidney Disease Education Program and the [facility] Kid[facility] Foundation literature.Reference ranges:60 or greater: Xzhctn57-66 ( for 3 consecutive months): Chronic kidney disease 15 or less: Kidney failureMemorial Hermann Sugar Land HospitalGlucose wdioznammbx2044-23-17 04:47:00* Test Item Value Reference Range Interpretation Comments Glucose Level (test code = ZPZ9600) 91 74-118 [facility] or plasma calcium measurement (mass/volume)2020-03-19 04:47:00* Test Item Value Reference Range Interpretation Comments Calcium Level (test code = 72368-8) 8.1 8.4-10.2 [facility] plasma total bilirubin measurement (mass/volume)2020-03-19 04:47:00* Test Item Value Reference Range Interpretation Comments Total Bilirubin (test code = 1975-2) 0.6 0.2-1.2 [facility] HospitalFluoroscopic procedure less than one hour [id number] 04:47:00* Test Item Value Reference Range Interpretation Comments Aspartate Amino Transf (AST/SGOT) (test code = Aspartate Amino Transf (AST/SGOT)) 19 5-34 [facility] or plasma alanine aminotransferase measurement (enzymatic activity/volume)2020-03-19 04:47:00* Test Item Value Reference Range Interpretation Comments Alanine Aminotransferase (ALT/SGPT) (test code = 1742-6) 11 0-55 [facility] or plasma protein measurement (mass/volume)2020-03-19 04:47:00* Test Item Value Reference Range Interpretation Comments Total Protein (test code = 2885-2) 6.1 6.5-8.1 [facility] albumin measurement (mass/volume)2020-03-19 04:47:00* Test Item Value Reference Range Interpretation Comments Albumin (test code = 1751-7) 3.7 3.5-5.0 [facility] HospitalPlasma globulin measurement (mass/volume) 2020-03-19 04:47:00* Test Item Value Reference Range Interpretation Comments Globulin (test code = 41265-4) 2.4 2.3-3.5 [facility] albumin/globulin mass [id number] 04:47:00* Test Item Value Reference Range Interpretation Comments Albumin/Globulin Ratio (test code = 1759-0) 1.5 0.8-2.0 [facility] alkaline phosphatase measurement (enzymatic activity/volume)2020-03-19 04:47:00* Test Item Value Reference Range Interpretation Comments Alkaline Phosphatase (test code = 6768-6) 33 40-150 [facility] or plasma triglyceride measurement (mass/volume)2020-03-19 04:47:00* Test Item Value Reference Range Interpretation Comments Triglycerides Level (test code = 2571-8) 117 0-149 [facility] or plasma cholesterol measurement (mass/volume)2020-03-19 04:47:00* Test Item Value Reference Range Interpretation Comments Cholesterol Level (test code = 2093-3) 134 0-199 Less than 200 mg/dL Low Ojqf538 - 239 mg/dL Borderline Essm962 m g/dl and greater High Risk [facility] plasma cholesterol in LDL measurement (mass/volume) 2020-03-19 04:47:00* Test Item Value Reference Range Interpretation Comments LDL Cholesterol (test code = 2089-1) 62 60-130 [facility] or plasma cholesterol in HDL measurement (mass/volume)2020-03-19 04:47:00* Test Item Value Reference Range Interpretation Comments HDL Cholesterol (test code = 2085-9) 49 40-60 [facility] or plasma total cholesterol/cholesterol in HDL mass oxcfm1562-12-80 04:47:00* Test Item Value Reference Range Interpretation Comments Cholesterol/HDL Ratio (test code = 9830-1) 2.7 3.9-4.7 [facility] HospitalMRI SPINE CERVICAL [id number] 18:03:00 [facility] [address] [place] [address] Patient Name: VALENTINO PEDROZA MR #: [id number] : 1935 Age/Sex: 84/M Req #: [id number] Adm Physician: NEY GOTTI MD Ordered by: NEY GOTTI MD Report #: [id number] Location: MED/SURG2 Room/Bed: [facility] Procedure: [id number] MRI/MRI SPINE JAS ZURITA Exam Date: Exam Time: REPORT STATUS: Signed History: Hand numbness, heada mauro Comparison studies: None Technique: Sagittal T1, T2 and IR, axial T2 and axial gradient echo Intravenous contrast: None Findings: Al ignment: Mild reversal the usual cervical lordotic curvature with retrolisthes is of C4 on C5 by approximately 4 mm, retrolisthesis of C5 on C6 by approximat óscar 3 mm), severe degenerative canal stenosis due to disc ossify) retrolisthes is retrolisthesis of C6 on C7 by approximately 2 mm. Cervicomedullary ju nction: No abnormalities. Patent foramen magnum. Soft tissues: Small preverte bral effusion from C3 to C6. Spinal cord: Focal cord signal abnormality with m yelomalacia at C4-C5 as well as possible cord signal changes at C5-C6 due to s evere degenerative canal stenosis described below. Vertebrae: No acut e compression fracture, infection or neoplasm. Chronic T3 superior endplate de pression deformity with mild height loss. Edema within the C5-C6 and C6-C7 vertebral bodies and in the superior C7 endplate is without associated increas ed T2 signal within the disc to suggest discitis osteomyelitis and is most lik óscar degenerative in etiology. Degenerative changes: C2-C3: Mildly de generated disc. Mild left and severe right foraminal stenosis due to uncoverte bral and facet arthrosis. The right facets are fused. C3-C4: Mildly degen erated disc. Symmetric disc bulge and thickened ligamentum flavum contribute t o mild canal stenosis. Severe bilateral foraminal stenosis due to uncovertebra l arthrosis and severe right and mild left foraminal stenosis. C4-C5: Mod erately degenerated disc with moderate degenerative endplate edema. Retrolisth esis of C4 on C5 with associated disc osteophyte complex and thickened ligamen brunilda flavum contribute to severe canal stenosis. Severe bilateral foraminal juan nosis due to uncovertebral and facet arthrosis. C5-C6: Moderately degener ated disc with moderate degenerative endplate edema. Retrolisthesis of C5 on C 6 with associated disc osteophyte complex and small central disc extrusion and thickened ligamentum flavum contribute to severe canal stenosis. Severe bilat eral foraminal stenosis due to uncovertebral and facet arthrosis. C6-C7: Moderately degenerated disc with degenerative endplate edema. Disc osteophyte complex and thickened ligamentum flavum contribute to severe canal stenosis. Severe bilateral right foraminal stenosis due to uncovertebral and facet arth rosis. C7-T1: Mildly degenerated disc. Bilateral facet arthrosis. Patent canal and foramina. IMPRESSION: 1. 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 2. Small prevertebral effusion may be reactive related to degene rative changes or possibly related to recent trauma in the appropriate clinica l setting. 3. Severe foraminal stenosis on the right at C2-C3 and bilaterally from C3 to C7. 4. Moderately degenerated discs with reactive endplate dorothy a from C4 to C7. 5. Multilevel facet arthrosis. Findings discussed with Dr. Gotti at 6:25 pm 03/18/2020 Recommend spinal surgical consultation. Signed by: Dr. Manisha Guthrie M.D. on 03/18/2020 6:29 PM Dictated By : MANISHA GUTHRIE MD 1 829 Transcribed By: ANGY on 03/18/20 5664 COPY TO: NEY GOTTI MD MRI BRAIN [id number] 17:33:[address] [address] Patient Name: VALENTINO PEDROZA MR #: [id number] : 1935 Age/Sex: 84/M Req #: [id number] Adm Physician: NEY GOTTI MD Ordered by: NEY GOTTI MD Report #: [id number] Location: MED/SURG2 Room/Bed: [facility] Procedure: [id number] MRI/MRI BRAIN WO Exam Date: Exam Time: REPORT STATUS: Signed History: Headache Comparison studies : Same-day head CT and intracranial CTA. Technique: Sagittal and axial T 2, axial DWI, axial T2*GRE, axial T1 and axial coronal T2 FLAIR. Intravenous contrast: None Findings: Scalp: Incidental small lipoma in the right parietal scalp near the vertex. Bone marrow: Normal in signal intensity. Brain sulci: Mildly prominent. Ventricles: Mild compensatory dilatation. No hy drocephalus. Extra axial spaces: No mass, no fluid collection. Parenchyma : No mass, hemorrhage or acute ischemia. A few scattered and mildly confluent T2 FLAIR hyperintense foci in the supratentorial white matter are nonspecific but are most compatible with chronic microvascular ischemic changes. Ther e is an incidental prominent arachnoid granulation in the right occipital karine varium with associated focal herniation of the underlying right posteromedial cerebellum with chronic encephalomalacia. Suprasellar region: No abnormalit ies. Craniocervical junction: Patent foramen magnum. No Chiari malformation. Vessels: Normal flow-voids in the arteries and sinuses. Incidental findin gs: Bilateral intraocular lens replacements. Mild nonspecific reactive T2 hy perintense inflammatory changes in the bilateral anterior ethmoids as well as mild mucosal thickening with small retention cysts in the bilateral maxillary sinuses. IMPRESSION: No acute intracranial abnormalities. No change s from the same day head CT. Chronic findings: 1. Mild generalized paren chymal volume loss. 2. Mild to moderate supratentorial microvascular ischemic changes. 3. 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 Signed by: Dr. Manisha Guthrie M.D. on 03/18/2020 5:45 PM Dictated By: SIENA GUTHRIE MD [address] Gonzalo ranscribed By: ANGY on 03/18/201744 COPY TO: NEY GOTTI MD CTA [id number] 16:55:00 [facility] [address] [address] Patient Name: VALENTINO PEDROZA MR #: [id number] : 1935 Age/Sex: 84/M Req #: [id number] Adm Physician: NEY GOTTI MD Ordered by: MOY KOWALSKI DO Report #: [id number] Location: MED/SURG2 Room/Bed: [facility] Procedure: [id number] CT/CTA [facility] N Exam Date: 03/18/20 Exam Time: 1610 REPORT STATUS: Signed History:Hand numbness Comparison studies:Same-day head CT. Technique: Axial images were obt ained from the skull base to the vertex. Multiplanar and 3-D volume rendered i mages reformatted from the axial source data. Dose modulation, iterative recon struction, and/or weight based adjustment of the mA/kV was utilized to reduce the radiation dose to as low as reasonably achievable. Intravenous contrast : 100 cc of Isovue-370. Findings: Anterior circulation: Internal carotid arteries: Patent bilaterally with mild calcified atherosclerosis in th e bilateral cavernous and paraophthalmic segments without significant stenosis . Approximately 2 mm infundibular dilatation present at the left P-comm origin . Middle cerebral arteries: Patent, no proximal branch occlusion or stenosi s. Anterior cerebral arteries: Patent, no proximal branch occlusion or sten osis. Posterior circulation: Vertebral arteries, patent, no abnormalit ies. The V4 segment of the left vertebral artery is hypoplastic and essentiall y terminates as PICA branch. Basilar artery: Patent, no abnormalities. Posterior cerebral arteries: Patent, no proximal branch occlusion or stenosis. Anatomical variants: Anterior communicating artery :Present Posterior communicating arteries: Not visualized. Vertebral arteries: Right is dominant. Nondominant left vertebral artery essentially terminates as a PICA branch. IMPRESSION: 1. No major intracranial arterial branch occlusion or st enosis. 2. Incidental 2 mm infundibular dilatation at the left P-comm origin. Signed by: Dr. Manisha Guthrie M.D. on 03/18/2020 5:11 PM Dictated By : MANISHA GUTHRIE MD 1 711 Transcribed By: ANGY on 03/18/20 1711 COPY TO: MOY KOWALSKI DO CT BRAIN [id number] 11:44:00 [address] [address] Patient Name: VALENTINO PEDROZA MR #: [id number] : 1935 Age/Sex: 84/M Req #: [id number] Adm Physician: Ordered by: MOY KOWALKSI DO Report #: [id number] Location: ER Room/Bed: Procedure: [id number] CT/CT BRAIN WO Exam Date: 03/18/20 Exam Time: 1100 REPORT STATUS: Signed CT BRAIN WO HISTO RY: Numbness to hands, headache COMPARISON: Report from head CT dated 03/27 Technique: Noncontrast axial scans were obtained from skull base to the vertex. Coronal and sagittal reconstructions obtained from the axial d brittany. One or more of the following dose reduction techniques were used: Automa caitlin exposure control, adjustment of the mA and/or kV according to patient size , and/or utilization of iterative reconstruction technique. DISCUSSION: Scalp/Skull: Unremarkable. Brain sulci: Mildly prominent. Ventricles: Co mpensatory dilatation. Extra-axial spaces: No masses or fluid collections. Car otid siphon calcifications are present. Parenchyma: Mild bilateral may p white matter hypodensity is likely chronic microvascular ischemic change. Otherwise, no masses, hemorrhage, or large vascular territory acute infarct. Dural sinuses: No abnormal densities. Sellar/Suprasellar region: Intact. Skull base: Intact. Incidental findings: Mild scattered paranasal sinus mucos al thickening. IMPRESSION: 1. No acute intracranial abnormalities. 2. Mild supratentorial chronic microvascular ischemic change. Mild generalized c erebral volume loss. Signed by: Dr. Preston Oconnor M.D. on 03/18/2020 11 :50 AM Dictated By: PRESTON OCONNOR MD 115 Transcribed By: ANGY on 03/18/20 1150 C OPY TO: MOY KOWALSKI DO Serum or plasma creatine kinase measurement (enzymatic activity/volume)2020-03-18 11:00:00* Test Item Value Reference Range Interpretation Comments Creatine Kinase (test code = 2157-6) 77 30-200 [facility] kinase MB measurement (mass/volume)2020-03-18 11:00:00* Test Item Value Reference Range Interpretation Comments Creatine Kinase MB (test code = 19295-5) 2.70 0-5.0 [facility] by highly sensitive enzyme [id number] 11:00:00* Test Item Value Reference Range Interpretation Comments Troponin I (test code = 03966-2) 0.018 0-0.300 [facility]
--- NOTE | 2020-03-24 18:32 | Diagnostic Imaging Report ---
Neck and intracranial MRAs without IV contrast History: Dissection Comparison studies: Intracranial MRA and brain MRI of 03/18/2020 Technique: Neck MRA: Axial 2-D [id number] with 3-D MIP reformats. Intracranial MRA: Axial 3-D [id number] with coronal, sagittal and 3-D MIP reformats. Intravenous contrast: None Findings: Neck MRA: If present, stenosis is calculated utilizing the NASCET method which calculates the degree of stenosis with reference to the normal lumen of the carotid artery distal to the stenosis. Carotid arteries: Evaluation of the carotid artery origins is limited by artifact otherwise patent, no flow limiting stenosis. Carotid bulbs: Patent, no (0%) stenosis by NASCET criteria. Internal carotid arteries: Patent, no flow limiting stenosis. Vertebral arteries: Evaluation of the origins are limited by motion/pulsation artifacts. Both vertebral arteries are otherwise patent. Mild luminal regularity in the right vertebral artery without hemodynamically significant stenosis may be due to atherosclerosis or possibly related to hypertrophic uncovertebral and facet degenerative arthrosis in the cervical spine as seen on the prior cervical spine MRI. Right vertebral artery is dominant. Intracranial MRA: Anterior circulation: Internal carotid arteries: Patent with mild atherosclerosis in the carotid siphons without significant stenosis. Incidental 2 mm infundibular dilatation at the left P-comm origin. Middle cerebral arteries: Patent, no proximal branch occlusion or stenosis. Anterior cerebral arteries: Patent, no proximal branch occlusion or stenosis. Posterior circulation: Vertebral arteries: Patent, no abnormalities. The C4 segment of the left vertebral artery is hypoplastic and essentially terminates as a PICA branch. Basilar artery: Patent, no abnormalities. Posterior cerebral arteries: Patent, no proximal branch occlusion or stenosis. Anatomical variants: Acom: Visualized. Pcoms: Visualized bilaterally. Vertebral arteries: Right is dominant. Nondominant left vertebral artery with hypoplastic intradural V4 segment which terminates as a PICA branch. IMPRESSION: Neck MRA: 1. Evaluation of the common carotid artery and vertebral artery origins are limited due to artifacts. 2. Bilateral carotid and vertebral arteries beyond their origins are otherwise patent without flow-limiting stenosis. Intracranial MRA: 1. No major arterial branch occlusion or stenosis. 2. Incidental 2 mm infundibular dilatation the left P-comm origin. 3. No changes from the intracranial CTA of 03/18/2020. Signed by: Dr. Biju Guthrie M.D. on 03/19/2020 10:08 AM
== END 2020-03-19 19:00 | disposition home or self-care (01) ==
LOC: ER 11:38 → ERHOLD 11:53 → INTOOBSV 11:53 → MED/SURG2 13:15
PROVIDERS: ADMIT Internal Medicine; ATTEND Internal Medicine
DX: M48.00 Spinal stenosis, site unspecified (principal); M48.02 Spinal stenosis, cervical region; I10 Essential (primary) hypertension; E03.9 Hypothyroidism, unspecified; Z86.711 Personal history of pulmonary embolism; Z79.01 Long term (current) use of anticoagulants; Z86.718 Personal history of other venous thrombosis and embolism; M19.90 Unspecified osteoarthritis, unspecified site; Z95.828 Presence of other vascular implants and grafts; Z11.59 Encounter for screening for other viral diseases
CPT/HCPCS: 36415 ×2; 70450; 70496; 70544; 70547; 70551; 72141; 80053 ×2; 80061; 82550; 82553; 84484; 85025 ×2; 85651; 97116; 97161; 99284; G0378 ×2; J0696; J7030; J7050; J7512; Q9967; S0164; U0002

== ENCOUNTER 2022-11-12 06:13 | Inpatient (IN) | payer MEDICARE, OTHER ==
[~2022-11-12] VITALS: Ht 172.7 cm; Wt 83.0 kg
[2022-11-12] VITALS (9 sets, daily range): BP systolic 122–139; BP diastolic 78–98; PULSE 77–103; RESP 17–24; TEMP 97.4–98.2; O2SAT 96–98
[2022-11-12 06:44] LABS: BASOPHILS % 0.5 % (0.0-1.0); EOSINOPHILS # (AUTO) 0.2 (0.0-0.4); EOSINOPHILS % 2.5 % (0.0-6.0); HEMATOCRIT 41.2 % (38.2-49.6); HEMOGLOBIN 12.8 g/dL (14.0-18.0); LYMPHOCYTES # (AUTO) 1.3 (1.0-3.2); LYMPHOCYTES % 17.4 % (18.0-39.1); MEAN CORPUSCULAR HEMOGLOBIN 30.5 pg (28-32); MEAN CORPUSCULAR HGB CONC 31.1 g/dL (31-35); MEAN CORPUSCULAR VOLUME 98.3 fL (81-99); MONOCYTES # (AUTO) 0.6 (0.2-0.8); MONOCYTES % 7.9 % (4.4-11.3); NEUTROPHILS # (AUTO) 5.4 (2.1-6.9); NEUTROPHILS % 71.4 % (38.7-80.0); PLATELET COUNT 393 x10e3/uL (140-360); RED BLOOD COUNT 4.19 x10e6/uL (4.3-5.7); RED CELL DISTRIBUTION WIDTH 13.8 % (11.7-14.4)
[2022-11-12] MEDS ORDERED: NITROGLYCERIN 2% OINT 1 GM PKT TOP ONE (06:45)
[2022-11-12] MEDS ORDERED: SODIUM CHLORIDE FLUSH 10 ML SYR IV PRN (06:45)
[2022-11-12] MEDS ORDERED: ASPIRIN 81 MG CHEW TAB PO ONE (06:45)
[2022-11-12 06:56] LABS: INR 1.32; PROTHROMBIN TIME 16.9 seconds (11.9-14.5)
[2022-11-12 06:57] LABS: PARTIAL THROMBOPLASTIN TIME 44.8 seconds (23.8-35.5)
[2022-11-12 07:05] LABS: ALBUMIN 3.2 g/dL (3.5-5.0); ALBUMIN/GLOBULIN RATIO 0.9 (0.8-2.0); ANION GAP 13.6 mmol/L (8-16); CALCIUM 8.7 mg/dL (8.4-10.2); CREATININE, SERUM 1.02 mg/dL (0.72-1.25); POTASSIUM 3.6 mmol/L (3.5-5.1)
[2022-11-12] MEDS ORDERED: ONDANSETRON HCL INJ 2MG/ML 2ML 2 MG/ML VIAL IV PRN (08:00)
[2022-11-12] MEDS ORDERED: FUROSEMIDE INJ 10 MG/ML 4 ML VIAL IV ONE ×2 (08:00→18:50)
[2022-11-12] MEDS ORDERED: SODIUM CHLORIDE FLUSH 10 ML SYR INJ PRN (08:00)
[2022-11-12] MEDS ORDERED: AMLODIPINE BESYL5 MG PO (16:20)
[2022-11-12] MEDS ORDERED: LOSARTAN POTASS50 MG PO (16:20)
[2022-11-12] MEDS ORDERED: ELIQUIS5 MG PO (16:20)
[2022-11-12] MEDS ORDERED: DIALYVITE TABL1 EACH PO (16:20)
[2022-11-12] MEDS: FUROSEMIDE INJ 10 MG/ML 2 ML VIAL IV SCH ×2 (17:00→17:52)
[2022-11-12] MEDS: APIXABAN 5 MG TABLET PO SCH (17:52)
[2022-11-12] MEDS: ASPIRIN 81 MG CHEW TAB PO ONE ×2 (18:02→18:26)
[2022-11-12] MEDS: LISINOPRIL 2.5 MG TAB PO SCH (21:34)
[2022-11-13] VITALS (9 sets, daily range): BP systolic 115–131; BP diastolic 72–98; PULSE 78–107; RESP 18–23; TEMP 97.3–98.1; O2SAT 93–100
[2022-11-13] MEDS: FUROSEMIDE INJ 10 MG/ML 2 ML VIAL IV SCH ×2 (08:00→16:48)
[2022-11-13] MEDS ORDERED: HYDRALAZINE HCL 20 MG/ML VIAL IV PRN (10:30)
[2022-11-13] MEDS ORDERED: CHLORDIAZEPOXIDE HCL 10 MG CAP PO PRN (10:30)
[2022-11-13] MEDS ORDERED: IOPAMIDOL 370 MG/ML 100 ML INFUS..BTL INJ ONE (10:46)
[2022-11-13] MEDS: APIXABAN 5 MG TABLET PO SCH ×2 (12:53→16:48)
[2022-11-13] MEDS: METOPROLOL SUCCINATE 25 MG TAB XL PO SCH (12:53)
[2022-11-13] MEDS: POTASSIUM CHLORIDE 10MEQ EA PO SCH (12:54)
[2022-11-13] MEDS: LISINOPRIL 2.5 MG TAB PO SCH (20:54)
[2022-11-13] MEDS: Doxycycline IV 100 MG in SODIUM CHLORIDE 0.9% 100 ML IV SCH (20:54)
[2022-11-13] MEDS ORDERED: SODIUM CHLORIDE 0.9% 250ML 250 ML ONE (20:57)
[2022-11-14] VITALS (9 sets, daily range): BP systolic 115–148; BP diastolic 85–99; PULSE 64–104; RESP 16–22; TEMP 97.1–97.9; O2SAT 92–98
[2022-11-14] MEDS: LORAZEPAM INJ 2 MG/ML VIAL IV PRN (04:52)
[2022-11-14] MEDS: LEVOTHYROXINE SODIUM 25 MCG TABLET PO SCH (05:01)
[2022-11-14 06:35] LABS: BASOPHILS # (AUTO) 0.1 (0.0-0.1); BASOPHILS % 0.6 % (0.0-1.0); EOSINOPHILS # (AUTO) 0.1 (0.0-0.4); EOSINOPHILS % 1.6 % (0.0-6.0); HEMOGLOBIN 13.3 g/dL (14.0-18.0); LYMPHOCYTES # (AUTO) 1.1 (1.0-3.2); MEAN CORPUSCULAR HEMOGLOBIN 30.7 pg (28-32); MEAN CORPUSCULAR HGB CONC 32.4 g/dL (31-35); MEAN CORPUSCULAR VOLUME 94.7 fL (81-99); MONOCYTES # (AUTO) 0.9 (0.2-0.8); MONOCYTES % 10.7 % (4.4-11.3); NEUTROPHILS # (AUTO) 5.9 (2.1-6.9); NEUTROPHILS % 72.9 % (38.7-80.0); PLATELET COUNT 403 x10e3/uL (140-360); RED BLOOD COUNT 4.33 x10e6/uL (4.3-5.7); RED CELL DISTRIBUTION WIDTH 13.4 % (11.7-14.4)
[2022-11-14 07:07] LABS: ANION GAP 15.2 mmol/L (8-16); CALCIUM 9.1 mg/dL (8.4-10.2); CREATININE, SERUM 1.08 mg/dL (0.72-1.25); POTASSIUM 3.2 mmol/L (3.5-5.1)
[2022-11-14 07:32] LABS: MAGNESIUM 1.2 MG/DL (1.3-2.1); PHOSPHORUS 3.3 MG/DL (2.3-4.7)
[2022-11-14 07:54] LABS: THYROID STIMULATING HORMONE 3.343 uIU/mL (0.350-4.940)
[2022-11-14] MEDS: PANTOPRAZOLE SOD 40 MG TABEC PO SCH (09:20)
[2022-11-14] MEDS: POTASSIUM CHLORIDE 10MEQ EA PO SCH (09:20)
[2022-11-14] MEDS: FUROSEMIDE INJ 10 MG/ML 2 ML VIAL IV SCH (09:20)
[2022-11-14] MEDS: APIXABAN 5 MG TABLET PO SCH ×2 (09:20→16:50)
[2022-11-14] MEDS: Doxycycline IV 100 MG in SODIUM CHLORIDE 0.9% 100 ML IV SCH ×2 (09:24→20:07)
[2022-11-14] MEDS: METOPROLOL SUCCINATE 25 MG TAB XL PO SCH (09:24)
[2022-11-14] MEDS ORDERED: CHLORDIAZEPOXIDE HCL 25 MG CAP PO PRN (09:30)
[2022-11-14] MEDS ORDERED: POTASSIUM CHLORIDE 20 MEQ TAB CR PO PRN (10:30)
[2022-11-14] MEDS ORDERED: POTASSIUM CHLORIDE 10MEQ EA PO ONE (11:00)
[2022-11-14] MEDS: MULTIVITAMINS/MINERALS TAB PO SCH (12:13)
[2022-11-14] MEDS: MAGNESIUM OXIDE 400 MG TAB PO SCH (12:14)
[2022-11-14] MEDS: MAGNESIUM SULFATE 2GM/50ML 50 ML IV SCH ×3 (12:14→16:50)
[2022-11-14] MEDS: THIAMINE HCL INJ 100 MG/ML 2ML VIAL IV SCH (12:14)
[2022-11-14] MEDS: FOLIC ACID 1 MG TAB PO SCH (12:19)
[2022-11-14] MEDS ORDERED: DIAZEPAM 5 MG TAB PO PRN (14:45)
[2022-11-14] MEDS: LISINOPRIL 2.5 MG TAB PO SCH (20:07)
[2022-11-15] VITALS (11 sets, daily range): BP systolic 127–148; BP diastolic 86–99; PULSE 82–91; RESP 18–21; TEMP 97.1–97.4; O2SAT 94–100
[2022-11-15] MEDS: LEVOTHYROXINE SODIUM 25 MCG TABLET PO SCH (05:26)
[2022-11-15 06:27] LABS: BASOPHILS # (AUTO) 0.1 (0.0-0.1); BASOPHILS % 0.9 % (0.0-1.0); EOSINOPHILS # (AUTO) 0.3 (0.0-0.4); HEMATOCRIT 43.9 % (38.2-49.6); HEMOGLOBIN 13.8 g/dL (14.0-18.0); LYMPHOCYTES # (AUTO) 1.3 (1.0-3.2); LYMPHOCYTES % 14.3 % (18.0-39.1); MEAN CORPUSCULAR HEMOGLOBIN 30.5 pg (28-32); MEAN CORPUSCULAR HGB CONC 31.4 g/dL (31-35); MEAN CORPUSCULAR VOLUME 96.9 fL (81-99); MONOCYTES # (AUTO) 0.9 (0.2-0.8); MONOCYTES % 10.2 % (4.4-11.3); NEUTROPHILS # (AUTO) 6.5 (2.1-6.9); NEUTROPHILS % 70.9 % (38.7-80.0); PLATELET COUNT 446 x10e3/uL (140-360); RED BLOOD COUNT 4.53 x10e6/uL (4.3-5.7); RED CELL DISTRIBUTION WIDTH 13.3 % (11.7-14.4)
[2022-11-15 06:28] LABS: ANION GAP 12.6 mmol/L (8-16); CREATININE, SERUM 1.04 mg/dL (0.72-1.25); POTASSIUM 3.6 mmol/L (3.5-5.1)
[2022-11-15] MEDS: LORAZEPAM INJ 2 MG/ML VIAL IV PRN (06:47)
[2022-11-15 06:51] LABS: MAGNESIUM 2.2 MG/DL (1.3-2.1); PHOSPHORUS 3.2 MG/DL (2.3-4.7)
[2022-11-15] MEDS: MAGNESIUM OXIDE 400 MG TAB PO SCH (09:00)
[2022-11-15] MEDS: APIXABAN 5 MG TABLET PO SCH ×2 (09:47→15:41)
[2022-11-15] MEDS: Doxycycline IV 100 MG in SODIUM CHLORIDE 0.9% 100 ML IV SCH ×2 (09:47→20:29)
[2022-11-15] MEDS: MULTIVITAMINS/MINERALS TAB PO SCH (09:47)
[2022-11-15] MEDS: POTASSIUM CHLORIDE 10MEQ EA PO SCH (09:48)
[2022-11-15] MEDS: METOPROLOL SUCCINATE 25 MG TAB XL PO SCH (09:48)
[2022-11-15] MEDS: PANTOPRAZOLE SOD 40 MG TABEC PO SCH (09:48)
[2022-11-15] MEDS: FOLIC ACID 1 MG TAB PO SCH (09:48)
[2022-11-15] MEDS: THIAMINE HCL INJ 100 MG/ML 2ML VIAL IV SCH (09:49)
[2022-11-15] MEDS ORDERED: LORAZEPAM INJ 2 MG/ML VIAL IV PRN (10:30)
[2022-11-15] MEDS ORDERED: ONDANSETRON HCL 4 MG ORAL DISINTEGRATING TAB PO PRN (14:00)
[2022-11-15] MEDS: LISINOPRIL 2.5 MG TAB PO SCH (20:29)
[2022-11-16] VITALS (9 sets, daily range): BP systolic 101–139; BP diastolic 79–94; PULSE 62–109; RESP 16–20; TEMP 97–98.8; O2SAT 96–100
[2022-11-16] MEDS: LEVOTHYROXINE SODIUM 25 MCG TABLET PO SCH (05:55)
[2022-11-16] MEDS ORDERED: CHLORDIAZEPOXIDE HCL 10 MG CAP PO PRN (09:30)
[2022-11-16] MEDS: FOLIC ACID 1 MG TAB PO SCH (09:34)
[2022-11-16] MEDS: MULTIVITAMINS/MINERALS TAB PO SCH (09:34)
[2022-11-16] MEDS: PANTOPRAZOLE SOD 40 MG TABEC PO SCH (09:34)
[2022-11-16] MEDS: MAGNESIUM OXIDE 400 MG TAB PO SCH (09:35)
[2022-11-16] MEDS: APIXABAN 5 MG TABLET PO SCH ×2 (09:35→17:37)
[2022-11-16] MEDS: THIAMINE HCL INJ 100 MG/ML 2ML VIAL IV SCH (09:35)
[2022-11-16] MEDS: METOPROLOL SUCCINATE 25 MG TAB XL PO SCH (09:35)
[2022-11-16] MEDS: DOXYCYCLINE HYCLATE TABLET 100 MG TAB PO SCH ×2 (09:36→21:00)
[2022-11-16] MEDS: POTASSIUM CHLORIDE 10MEQ EA PO SCH (09:36)
[2022-11-16] MEDS: QUETIAPINE FUMARATE 25 MG TAB PO PRN ×2 (11:08→21:00)
[2022-11-16] MEDS: LISINOPRIL 2.5 MG TAB PO SCH (20:59)
[2022-11-17] VITALS (9 sets, daily range): BP systolic 117–133; BP diastolic 81–99; PULSE 63–109; RESP 16–20; TEMP 97–98.2; O2SAT 95–100
[2022-11-17] MEDS: LEVOTHYROXINE SODIUM 25 MCG TABLET PO SCH (05:36)
[2022-11-17 05:37] LABS: BASOPHILS % 0.3 % (0.0-1.0); EOSINOPHILS # (AUTO) 0.2 (0.0-0.4); EOSINOPHILS % 2.3 % (0.0-6.0); HEMATOCRIT 45.5 % (38.2-49.6); HEMOGLOBIN 14.2 g/dL (14.0-18.0); LYMPHOCYTES # (AUTO) 1.2 (1.0-3.2); LYMPHOCYTES % 13.4 % (18.0-39.1); MEAN CORPUSCULAR HEMOGLOBIN 30.7 pg (28-32); MEAN CORPUSCULAR HGB CONC 31.2 g/dL (31-35); MEAN CORPUSCULAR VOLUME 98.3 fL (81-99); MONOCYTES # (AUTO) 0.9 (0.2-0.8); NEUTROPHILS # (AUTO) 6.8 (2.1-6.9); NEUTROPHILS % 73.6 % (38.7-80.0); PLATELET COUNT 431 x10e3/uL (140-360); RED BLOOD COUNT 4.63 x10e6/uL (4.3-5.7); RED CELL DISTRIBUTION WIDTH 13.5 % (11.7-14.4)
[2022-11-17 06:39] LABS: ALBUMIN 3.1 g/dL (3.5-5.0); ALBUMIN/GLOBULIN RATIO 0.9 (0.8-2.0); ANION GAP 12.2 mmol/L (8-16); CALCIUM 9.5 mg/dL (8.4-10.2); CREATININE, SERUM 1.1 mg/dL (0.72-1.25); POTASSIUM 4.2 mmol/L (3.5-5.1)
[2022-11-17] MEDS: THIAMINE HCL INJ 100 MG/ML 2ML VIAL IV SCH (08:38)
[2022-11-17] MEDS: MULTIVITAMINS/MINERALS TAB PO SCH (08:39)
[2022-11-17] MEDS: APIXABAN 5 MG TABLET PO SCH ×2 (08:39→17:01)
[2022-11-17] MEDS: DOXYCYCLINE HYCLATE TABLET 100 MG TAB PO SCH ×2 (08:39→20:51)
[2022-11-17] MEDS: METOPROLOL SUCCINATE 25 MG TAB XL PO SCH (08:39)
[2022-11-17] MEDS: FOLIC ACID 1 MG TAB PO SCH (08:39)
[2022-11-17] MEDS: PANTOPRAZOLE SOD 40 MG TABEC PO SCH (08:39)
[2022-11-17] MEDS: MAGNESIUM OXIDE 400 MG TAB PO SCH (08:40)
[2022-11-17] MEDS: POTASSIUM CHLORIDE 10MEQ EA PO SCH (08:45)
[2022-11-17] MEDS ORDERED: LEVALBUTEROL HCL SOLN NEBU 0.63 MG/3 ML NEB INH PRN (10:45)
[2022-11-17] MEDS ORDERED: ALBUTEROL/IPRATROPIUM 3 ML NEB NEB SCH (13:00)
[2022-11-17] MEDS: IPRATROPIUM BROMIDE 0.02% 2.5 ML NEB NEB SCH ×2 (13:10→20:00)
[2022-11-17] MEDS: LISINOPRIL 2.5 MG TAB PO SCH (20:51)
[2022-11-17] MEDS: QUETIAPINE FUMARATE 25 MG TAB PO PRN (20:52)
[2022-11-18] VITALS (9 sets, daily range): BP systolic 100–139; BP diastolic 80–97; PULSE 64–100; RESP 18–22; TEMP 91.1–98.6; O2SAT 90–100
[2022-11-18] MEDS: IPRATROPIUM BROMIDE 0.02% 2.5 ML NEB NEB SCH ×3 (01:40→13:50)
[2022-11-18] MEDS: LEVOTHYROXINE SODIUM 25 MCG TABLET PO SCH (05:23)
[2022-11-18] MEDS: FOLIC ACID 1 MG TAB PO SCH (08:58)
[2022-11-18] MEDS: POTASSIUM CHLORIDE 10MEQ EA PO SCH (08:58)
[2022-11-18] MEDS: APIXABAN 5 MG TABLET PO SCH (08:58)
[2022-11-18] MEDS: THIAMINE HCL INJ 100 MG/ML 2ML VIAL IV SCH (08:58)
[2022-11-18] MEDS: METOPROLOL SUCCINATE 25 MG TAB XL PO SCH (08:59)
[2022-11-18] MEDS: MULTIVITAMINS/MINERALS TAB PO SCH (08:59)
[2022-11-18] MEDS: PANTOPRAZOLE SOD 40 MG TABEC PO SCH (08:59)
[2022-11-18] MEDS: DOXYCYCLINE HYCLATE TABLET 100 MG TAB PO SCH (08:59)
[2022-11-18] MEDS: MAGNESIUM OXIDE 400 MG TAB PO SCH (08:59)
[2022-11-19] MEDS ORDERED: THIAMINE HCL 100 MG TAB PO SCH (09:00)
== END 2022-11-18 15:05 | DRG 291 ==
LOC: ER 06:15 → MED/SURG3 07:50 → ER 09:05 → MED/SURG3 19:42 → OBSVTOIN 11-13 18:11
PROVIDERS: ADMIT Internal Medicine; ATTEND Internal Medicine
DX: I11.0 Hypertensive heart disease with heart failure (principal); G93.41 Metabolic encephalopathy; I50.43 Acute on chronic combined systolic (congestive) and diastolic (congestive) heart failure; J18.9 Pneumonia, unspecified organism; J96.21 Acute and chronic respiratory failure with hypoxia; F10.231 Alcohol dependence with withdrawal delirium; I48.20 Chronic atrial fibrillation, unspecified; F10.27 Alcohol dependence with alcohol-induced persisting dementia; Z20.822 Contact with and (suspected) exposure to COVID-19; E11.9 Type 2 diabetes mellitus without complications; I25.10 Atherosclerotic heart disease of native coronary artery without angina pectoris; E03.9 Hypothyroidism, unspecified; K21.9 Gastro-esophageal reflux disease without esophagitis; H91.90 Unspecified hearing loss, unspecified ear; J43.9 Emphysema, unspecified; Z86.711 Personal history of pulmonary embolism; Z86.718 Personal history of other venous thrombosis and embolism; Z79.82 Long term (current) use of aspirin; Z79.01 Long term (current) use of anticoagulants
CPT/HCPCS: 36415; 71045; 71260; 80048; 80053; 82232; 82378; 83735; 83880; 84100; 84443; 84484; 85025; 85379; 85610; 85730; 86335; 93005; 93306; 94640; 94760; 94799; 99285; G0378; J1940; J2060; J3411; J3475; J7050; Q9967

== ENCOUNTER 2022-12-26 14:54 | Inpatient (IN) | payer MEDICARE ==
[2022-12-26] VITALS (7 sets, daily range): BP systolic 111–129; BP diastolic 80–87; PULSE 86–104; RESP 20–29; TEMP 96.7–96.8; O2SAT 95–100
[~2022-12-26] VITALS: Ht 325.1 cm; Wt 75.4 kg
[~2022-12-26 14:54] MED LIST changes: +AMLODIPINE BESYL5 MG PO; +DIALYVITE TABL1 EACH PO; +ELIQUIS5 MG PO; +LOSARTAN POTASS50 MG PO
[2022-12-26 15:32] LABS: BASOPHILS % 0.4 % (0.0-1.0); EOSINOPHILS % 0.4 % (0.0-6.0); HEMATOCRIT 44.9 % (38.2-49.6); HEMOGLOBIN 14.3 g/dL (14.0-18.0); LYMPHOCYTES # (AUTO) 1.1 (1.0-3.2); LYMPHOCYTES % 15.3 % (18.0-39.1); MEAN CORPUSCULAR HEMOGLOBIN 30.5 pg (28-32); MEAN CORPUSCULAR HGB CONC 31.8 g/dL (31-35); MEAN CORPUSCULAR VOLUME 95.7 fL (81-99); MONOCYTES # (AUTO) 0.4 (0.2-0.8); MONOCYTES % 6.2 % (4.4-11.3); NEUTROPHILS # (AUTO) 5.3 (2.1-6.9); NEUTROPHILS % 77.3 % (38.7-80.0); PLATELET COUNT 307 x10e3/uL (140-360); RED BLOOD COUNT 4.69 x10e6/uL (4.3-5.7); RED CELL DISTRIBUTION WIDTH 15.9 % (11.7-14.4)
[2022-12-26 15:38] LABS: INR 1.63; PARTIAL THROMBOPLASTIN TIME 36.7 seconds (23.8-35.5); PROTHROMBIN TIME 20.2 seconds (11.9-14.5)
[2022-12-26 15:44] LABS: ALBUMIN 3.5 g/dL (3.5-5.0); ANION GAP 18.4 mmol/L (8-16); CALCIUM 7.9 mg/dL (8.4-10.2); CREATININE, SERUM 1.46 mg/dL (0.72-1.25); POTASSIUM 4.4 mmol/L (3.5-5.1)
[2022-12-26 16:05] LABS: MAGNESIUM 0.7 MG/DL (1.3-2.1)
[2022-12-26] MEDS ORDERED: MAGNESIUM SULFATE 2GM/50ML 50 ML IV ONE (16:45)
[2022-12-26] MEDS ORDERED: MAGNESIUM SULF 1GRAM/DEXTROSE 100 ML IV ONE (16:45)
[2022-12-26] MEDS ORDERED: FUROSEMIDE INJ 10 MG/ML 4 ML VIAL IV ONE (17:00)
[2022-12-26] MEDS ORDERED: Morphine 2mg Syringe 2 MG/ML SYR IV PRN (17:30)
[2022-12-26] MEDS ORDERED: ONDANSETRON HCL INJ 2MG/ML 2ML 2 MG/ML VIAL IV PRN (17:30)
[2022-12-26] MEDS: FAMOTIDINE 20 MG/2 ML VIAL IV SCH (18:13)
[2022-12-26] MEDS ORDERED: AMIODARONE 900MG 900 MG in Premix Bag 1 BAG IV SCH (20:15)
[2022-12-26] MEDS ORDERED: AMIODARONE HCL 150 MG/100 ML BAG IV ONE (20:15)
[2022-12-26] MEDS ORDERED: AMIODARONE HCL ONE (20:16)
[2022-12-26] MEDS ORDERED: DEXTROSE 5% IV ONE (20:17)
[2022-12-27] VITALS (32 sets, daily range): BP systolic 69–145; BP diastolic 49–123; PULSE 50–132; RESP 14–33; TEMP 97–98.1; O2SAT 75–100
[2022-12-27] MEDS ORDERED: ZIPRASIDONE 20 MG VIAL IM STA ×2 (00:10→00:18)
[2022-12-27 00:41] LABS: ABG PCO2 43 mmHg (35-45); ABG PH 7.26 (7.35-7.45); ABG PO2 147 mmHg (80-105)
[2022-12-27 00:42] LABS: ABG HCO3 19 mmol/L (22-26); ABG TCO2 21
[2022-12-27] MEDS ORDERED: FUROSEMIDE INJ 10 MG/ML 4 ML VIAL IV ONE (00:45)
[2022-12-27] MEDS ORDERED: MAGNESIUM OXID400 MG PO (05:56)
[2022-12-27] MEDS: LEVOTHYROXINE SODIUM 25 MCG TABLET PO SCH (06:00)
[2022-12-27] MEDS ORDERED: THIAMINE HCL500 MG PO (06:03)
[2022-12-27] MEDS ORDERED: TRAZODONE HCL50 MG PO (06:03)
[2022-12-27] MEDS ORDERED: MELATONIN3 MG PO (06:03)
[2022-12-27] MEDS ORDERED: LISINOPRIL2.5 MG PO (06:03)
[2022-12-27] MEDS ORDERED: METOPROLOL SUCC25 MG PO (06:03)
[2022-12-27] MEDS ORDERED: ZUPLENZ4 MG (06:03)
[2022-12-27] MEDS ORDERED: POTASSIUM CHLO20 ME1 PO (06:03)
[2022-12-27] MEDS ORDERED: TYLENOL EXTRA500 MG PO (06:03)
[2022-12-27] MEDS ORDERED: NAMENDA5 MG PO (06:03)
[2022-12-27] MEDS: FAMOTIDINE 20 MG/2 ML VIAL IV SCH ×2 (06:31→17:32)
[2022-12-27] MEDS: FENOFIBRATE 145 MG TAB PO SCH (07:41)
[2022-12-27] MEDS: PANTOPRAZOLE SOD 40 MG TABEC PO SCH (07:41)
[2022-12-27] MEDS: APIXABAN 5 MG TABLET PO SCH ×2 (07:41→17:32)
[2022-12-27 08:29] LABS: BASOPHILS # (AUTO) 0.1 (0.0-0.1); BASOPHILS % 0.4 % (0.0-1.0); HEMATOCRIT 44.5 % (38.2-49.6); HEMOGLOBIN 14.3 g/dL (14.0-18.0); LYMPHOCYTES # (AUTO) 1.8 (1.0-3.2); LYMPHOCYTES % 15.4 % (18.0-39.1); MEAN CORPUSCULAR HEMOGLOBIN 31.2 pg (28-32); MEAN CORPUSCULAR HGB CONC 32.1 g/dL (31-35); MEAN CORPUSCULAR VOLUME 96.9 fL (81-99); MONOCYTES # (AUTO) 0.8 (0.2-0.8); MONOCYTES % 6.7 % (4.4-11.3); NEUTROPHILS # (AUTO) 9.1 (2.1-6.9); PLATELET COUNT 325 x10e3/uL (140-360); RED BLOOD COUNT 4.59 x10e6/uL (4.3-5.7); RED CELL DISTRIBUTION WIDTH 15.9 % (11.7-14.4)
[2022-12-27] MEDS: LORAZEPAM INJ 2 MG/ML VIAL IV PRN ×2 (08:30→13:54)
[2022-12-27] MEDS ORDERED: ZIPRASIDONE 20 MG VIAL IM ONE (08:45)
[2022-12-27 08:59] LABS: ALBUMIN 3.5 g/dL (3.5-5.0); ALBUMIN/GLOBULIN RATIO 1.1 (0.8-2.0); CALCIUM 7.8 mg/dL (8.4-10.2); CREATININE, SERUM 1.55 mg/dL (0.72-1.25)
[2022-12-27] MEDS ORDERED: AMIODARONE 900MG 900 MG in Premix Bag 1 BAG IV SCH (13:00)
[2022-12-27] MEDS ORDERED: AMIODARONE 900MG 500 ML IV SCH (13:15)
[2022-12-27 13:43] LABS: BASOPHILS % 0.3 % (0.0-1.0); EOSINOPHILS % 0.1 % (0.0-6.0); HEMATOCRIT 39.9 % (38.2-49.6); HEMOGLOBIN 12.8 g/dL (14.0-18.0); LYMPHOCYTES # (AUTO) 0.7 (1.0-3.2); LYMPHOCYTES % 7.5 % (18.0-39.1); MEAN CORPUSCULAR HEMOGLOBIN 30.8 pg (28-32); MEAN CORPUSCULAR HGB CONC 32.1 g/dL (31-35); MEAN CORPUSCULAR VOLUME 95.9 fL (81-99); MONOCYTES # (AUTO) 0.6 (0.2-0.8); MONOCYTES % 6.7 % (4.4-11.3); NEUTROPHILS # (AUTO) 8.1 (2.1-6.9); NEUTROPHILS % 85.1 % (38.7-80.0); PLATELET COUNT 239 x10e3/uL (140-360); RED BLOOD COUNT 4.16 x10e6/uL (4.3-5.7); RED CELL DISTRIBUTION WIDTH 15.9 % (11.7-14.4)
[2022-12-27 14:34] LABS: ALBUMIN 2.9 g/dL (3.5-5.0); ALBUMIN/GLOBULIN RATIO 0.9 (0.8-2.0); CALCIUM 7.6 mg/dL (8.4-10.2); CHOL/HDL RATIO 3.6 (3.9-4.7); CREATININE, SERUM 1.48 mg/dL (0.72-1.25)
[2022-12-27] MEDS ORDERED: DEXMEDETOMIDINE 400MCG/NS100ML 100 ML IV PRN (15:00)
[2022-12-28] VITALS (28 sets, daily range): BP systolic 98–148; BP diastolic 72–98; PULSE 40–151; RESP 13–25; TEMP 97.2–97.7; O2SAT 94–100
[2022-12-28] MEDS: FAMOTIDINE 20 MG/2 ML VIAL IV SCH ×2 (05:14→16:56)
[2022-12-28] MEDS: LEVOTHYROXINE SODIUM 25 MCG TABLET PO SCH (05:38)
[2022-12-28 06:58] LABS: BASOPHILS % 0.3 % (0.0-1.0); EOSINOPHILS % 0.1 % (0.0-6.0); HEMATOCRIT 42.2 % (38.2-49.6); HEMOGLOBIN 12.9 g/dL (14.0-18.0); LYMPHOCYTES # (AUTO) 0.7 (1.0-3.2); LYMPHOCYTES % 6.8 % (18.0-39.1); MEAN CORPUSCULAR HEMOGLOBIN 30.6 pg (28-32); MEAN CORPUSCULAR HGB CONC 30.6 g/dL (31-35); MEAN CORPUSCULAR VOLUME 100.2 fL (81-99); MONOCYTES # (AUTO) 0.6 (0.2-0.8); MONOCYTES % 6.2 % (4.4-11.3); NEUTROPHILS # (AUTO) 8.4 (2.1-6.9); NEUTROPHILS % 86.1 % (38.7-80.0); PLATELET COUNT 211 x10e3/uL (140-360); RED BLOOD COUNT 4.21 x10e6/uL (4.3-5.7); RED CELL DISTRIBUTION WIDTH 15.8 % (11.7-14.4)
[2022-12-28 07:22] LABS: ALBUMIN 2.7 g/dL (3.5-5.0); ALBUMIN/GLOBULIN RATIO 0.9 (0.8-2.0); ANION GAP 16.7 mmol/L (8-16); CALCIUM 7.5 mg/dL (8.4-10.2); CREATININE, SERUM 1.24 mg/dL (0.72-1.25); POTASSIUM 3.7 mmol/L (3.5-5.1)
[2022-12-28 07:40] LABS: MAGNESIUM 1.2 MG/DL (1.3-2.1); PHOSPHORUS 4.3 MG/DL (2.3-4.7)
[2022-12-28] MEDS: PANTOPRAZOLE SOD 40 MG TABEC PO SCH ×2 (07:44→08:05)
[2022-12-28 08:04] LABS: THYROID STIMULATING HORMONE 0.652 uIU/mL (0.350-4.940)
[2022-12-28] MEDS: FENOFIBRATE 145 MG TAB PO SCH (08:05)
[2022-12-28] MEDS: APIXABAN 5 MG TABLET PO SCH ×2 (08:06→16:56)
[2022-12-28] MEDS ORDERED: MAGNESIUM SULFATE 2GM/50ML 50 ML IV ONE ×2 (08:45→17:00)
[2022-12-28] MEDS ORDERED: FUROSEMIDE 20 MG TAB PO SCH (09:30)
[2022-12-28] MEDS ORDERED: MAGNESIUM HYDROXIDE 30 ML UDC PO ONE (09:30)
[2022-12-28] MEDS: FUROSEMIDE 40 MG TAB PO SCH (09:33)
[2022-12-28] MEDS: TRAZODONE HCL 50 MG TAB PO SCH (20:17)
[2022-12-29] VITALS (14 sets, daily range): BP systolic 110–135; BP diastolic 72–99; PULSE 64–86; RESP 16–24; TEMP 97.2–97.8; O2SAT 74–98
[2022-12-29] MEDS: FAMOTIDINE 20 MG/2 ML VIAL IV SCH ×2 (04:50→18:04)
[2022-12-29] MEDS: LEVOTHYROXINE SODIUM 25 MCG TABLET PO SCH (05:21)
[2022-12-29 07:06] LABS: BASOPHILS % 0.4 % (0.0-1.0); EOSINOPHILS # (AUTO) 0.2 (0.0-0.4); EOSINOPHILS % 1.6 % (0.0-6.0); HEMATOCRIT 40.7 % (38.2-49.6); LYMPHOCYTES # (AUTO) 1.2 (1.0-3.2); LYMPHOCYTES % 13.1 % (18.0-39.1); MEAN CORPUSCULAR HEMOGLOBIN 31.2 pg (28-32); MEAN CORPUSCULAR HGB CONC 31.9 g/dL (31-35); MEAN CORPUSCULAR VOLUME 97.6 fL (81-99); MONOCYTES # (AUTO) 0.7 (0.2-0.8); MONOCYTES % 8.1 % (4.4-11.3); NEUTROPHILS % 76.1 % (38.7-80.0); PLATELET COUNT 275 x10e3/uL (140-360); RED BLOOD COUNT 4.17 x10e6/uL (4.3-5.7); RED CELL DISTRIBUTION WIDTH 15.8 % (11.7-14.4)
[2022-12-29 07:26] LABS: ALBUMIN 2.7 g/dL (3.5-5.0); ALBUMIN/GLOBULIN RATIO 0.9 (0.8-2.0); ANION GAP 12.8 mmol/L (8-16); CALCIUM 7.8 mg/dL (8.4-10.2); CREATININE, SERUM 1.15 mg/dL (0.72-1.25); POTASSIUM 3.8 mmol/L (3.5-5.1)
[2022-12-29] MEDS: POLYETHYLENE GLYCOL 3350 17 GM PACK PO SCH ×2 (09:00→09:21)
[2022-12-29] MEDS: FUROSEMIDE 40 MG TAB PO SCH (09:20)
[2022-12-29] MEDS: FENOFIBRATE 145 MG TAB PO SCH (09:20)
[2022-12-29] MEDS: METOPROLOL SUCCINATE 25 MG TAB XL PO SCH (09:21)
[2022-12-29] MEDS: APIXABAN 5 MG TABLET PO SCH ×2 (09:22→18:04)
[2022-12-29] MEDS: VALSARTAN/SACUBITRIL 24MG/26MG 1 EA TAB PO SCH ×2 (09:22→20:47)
[2022-12-29] MEDS ORDERED: MAGNESIUM OXIDE 400 MG TAB PO ONE (17:30)
[2022-12-29] MEDS: TRAZODONE HCL 50 MG TAB PO SCH (20:47)
[2022-12-30] VITALS (10 sets, daily range): BP systolic 101–127; BP diastolic 71–97; PULSE 56–86; RESP 18–22; TEMP 97.4–98.6; O2SAT 92–99
[2022-12-30] MEDS: LEVOTHYROXINE SODIUM 25 MCG TABLET PO SCH (04:56)
[2022-12-30] MEDS: FAMOTIDINE 20 MG/2 ML VIAL IV SCH ×2 (04:57→17:15)
[2022-12-30] MEDS ORDERED: SODIUM CHLORIDE 0.9% 250ML 250 ML ONE (07:41)
[2022-12-30] MEDS: VALSARTAN/SACUBITRIL 24MG/26MG 1 EA TAB PO SCH ×2 (08:14→20:38)
[2022-12-30] MEDS: PANTOPRAZOLE SOD 40 MG TABEC PO SCH (08:14)
[2022-12-30] MEDS: FENOFIBRATE 145 MG TAB PO SCH (08:14)
[2022-12-30] MEDS: FUROSEMIDE 40 MG TAB PO SCH (08:14)
[2022-12-30] MEDS: APIXABAN 5 MG TABLET PO SCH ×2 (08:14→17:15)
[2022-12-30] MEDS: METOPROLOL SUCCINATE 25 MG TAB XL PO SCH (08:15)
[2022-12-30] MEDS: POLYETHYLENE GLYCOL 3350 17 GM PACK PO SCH (08:38)
[2022-12-30] MEDS ORDERED: POTASSIUM CHLORIDE 20 MEQ TAB CR PO ONE (11:30)
[2022-12-30] MEDS ORDERED: ONDANSETRON HCL 4 MG ORAL DISINTEGRATING TAB PO PRN (12:15)
[2022-12-30] MEDS: TRAZODONE HCL 50 MG TAB PO SCH (20:03)
[2022-12-30] MEDS ORDERED: FUROSEMIDE INJ 10 MG/ML 4 ML VIAL IV SCH (21:00)
[2022-12-31 04:04] VITALS: BP 126/77; PULSE 86; RESP 18; TEMP 97.6; O2SAT 96
[2022-12-31] MEDS: LEVOTHYROXINE SODIUM 25 MCG TABLET PO SCH (05:08)
[2022-12-31] MEDS: FAMOTIDINE 20 MG/2 ML VIAL IV SCH (05:09)
[2022-12-31 06:08] LABS: ANION GAP 14.6 mmol/L (8-16); CALCIUM 8.6 mg/dL (8.4-10.2); CREATININE, SERUM 1.04 mg/dL (0.72-1.25); POTASSIUM 3.6 mmol/L (3.5-5.1)
[2022-12-31] MEDS: FENOFIBRATE 145 MG TAB PO SCH (08:00)
[2022-12-31] MEDS: VALSARTAN/SACUBITRIL 24MG/26MG 1 EA TAB PO SCH (08:00)
[2022-12-31] MEDS: POLYETHYLENE GLYCOL 3350 17 GM PACK PO SCH (08:00)
[2022-12-31] MEDS: APIXABAN 5 MG TABLET PO SCH (08:00)
[2022-12-31] MEDS: METOPROLOL SUCCINATE 25 MG TAB XL PO SCH (08:00)
[2022-12-31] MEDS: PANTOPRAZOLE SOD 40 MG TABEC PO SCH (08:00)
[2022-12-31] MEDS ORDERED: FUROSEMIDE 40 MG TAB PO SCH (09:00)
[2022-12-31] MEDS ORDERED: SPIRONOLACTONE 25 MG TAB PO SCH (09:00)
[2022-12-31 12:39] VITALS: BP 115/82; PULSE 94; RESP 18; O2SAT 100
[2022-12-31] MEDS ORDERED: FAMOTIDINE 20 MG TAB PO SCH (16:30)
== END 2022-12-31 13:47 | disposition home or self-care (01) | DRG 291 ==
LOC: ER 15:01 → ERHOLD 17:28 → ICU 22:44 → MED/SURG2 12-29 17:55
PROVIDERS: ADMIT Internal Medicine; ATTEND Internal Medicine
DX: I13.0 Hypertensive heart and chronic kidney disease with heart failure and stage 1 through stage 4 chronic kidney disease, or unspecified chronic kidney disease (principal); G93.41 Metabolic encephalopathy; I50.23 Acute on chronic systolic (congestive) heart failure; F05 Delirium due to known physiological condition; I48.20 Chronic atrial fibrillation, unspecified; N17.9 Acute kidney failure, unspecified; E87.4 Mixed disorder of acid-base balance; I73.9 Peripheral vascular disease, unspecified; R09.02 Hypoxemia; I25.5 Ischemic cardiomyopathy; F01.50 Vascular dementia, unspecified severity, without behavioral disturbance, psychotic disturbance, mood disturbance, and anxiety; G31.1 Senile degeneration of brain, not elsewhere classified; F02.80 Dementia in other diseases classified elsewhere, unspecified severity, without behavioral disturbance, psychotic disturbance, mood disturbance, and anxiety; F10.20 Alcohol dependence, uncomplicated; E83.42 Hypomagnesemia; N18.9 Chronic kidney disease, unspecified; K21.9 Gastro-esophageal reflux disease without esophagitis; Z86.73 Personal history of transient ischemic attack (TIA), and cerebral infarction without residual deficits; Z79.01 Long term (current) use of anticoagulants; Z79.890 Hormone replacement therapy; Z82.49 Family history of ischemic heart disease and other diseases of the circulatory system; I25.2 Old myocardial infarction; Z86.718 Personal history of other venous thrombosis and embolism; Z20.822 Contact with and (suspected) exposure to COVID-19
CPT/HCPCS: 36415; 36600; 51700; 71045; 76770; 80048; 80053; 80061; 82550; 82607; 82746; 82747; 82805; 83605; 83735; 83880; 84100; 84443; 84484; 85025; 85610; 85730; 87040; 93005; 93306; 94660; 94799; 99252; 99285; J0696; J1940; J2060; J3475; J3486; J7050